=== PATIENT | female | born 1965 | race Caucasian/White ===

== ENCOUNTER 2024-10-24 14:08 | Outpatient (RCR) | payer MEDICAID, SELFPAY | END 2024-10-29 23:59 | disposition home or self-care (01) | LOC: SCTC 14:08 | PROVIDERS: PCP Physician Assistant; Referring Provider Physician Assistant; Visit Provider Nurse Practitioner Family | DX: Z09 Encounter for follow-up examination after completed treatment for conditions other than malignant neoplasm (principal); Z86.2 Personal history of diseases of the blood and blood-forming organs and certain disorders involving the immune mechanism; F17.210 Nicotine dependence, cigarettes, uncomplicated; E66.9 Obesity, unspecified; Z68.33 Body mass index [BMI] 33.0-33.9, adult | CPT/HCPCS: 99212; G0463 ==

== ENCOUNTER 2024-11-14 15:36 | Outpatient (RCR) | payer MEDICAID, SELFPAY | END 2024-11-29 23:59 | disposition home or self-care (01) | LOC: SCTC 15:36 | PROVIDERS: PCP Physician Assistant; Referring Provider Physician Assistant; Visit Provider Nurse Practitioner Family | DX: D72.829 Elevated white blood cell count, unspecified (principal); D75.1 Secondary polycythemia; D72.820 Lymphocytosis (symptomatic); D72.828 Other elevated white blood cell count; F17.210 Nicotine dependence, cigarettes, uncomplicated; E66.9 Obesity, unspecified; Z68.33 Body mass index [BMI] 33.0-33.9, adult; G62.9 Polyneuropathy, unspecified | CPT/HCPCS: 99212; G0463 ==

== ENCOUNTER 2024-12-14 08:19 | Outpatient (CLI) | payer MEDICAID, SELFPAY ==
[2024-12-13 15:37] LABS: Basophils % (Auto) 0 % (0-2.5); Eosinophils # (Auto) 0.4 Thou/mm3 (0.0-0.5); Eosinophils % (Auto) 3 % (0-10); Hematocrit 43.9 % (36.0-46.0); Hemoglobin 14.5 g/dL (12.0-16.0); Immature Granulocytes % (Auto) 1 % (0-0); Immature Granulocytes Auto 0.07 Thou/mm3 (0.00-0.00); Lymphocytes # (Auto) 2.8 Thou/mm3 (1.0-4.8); Lymphocytes % (Auto) 24 % (10-50); Mean Corpuscular Hemoglobin 29.9 pg (25.0-35.0); Mean Corpuscular Volume 91 fL (80-100); Monocytes % (Auto) 8 % (0-12); Neutrophils # (Auto) 7.4 Thou/mm3 (1.8-7.7); Neutrophils % (Auto) 64 % (37-80); Nucleated Red Blood Cell % 0 /100 WBC (0); Platelet Count 339 Thou/mm3 (140-440); RDW Standard Deviation 43.7 fL (36.4-46.3); Red Blood Count 4.85 Miln/mm3 (4.00-5.20); White Blood Count 11.6 Thou/mm3 (3.6-11.0)
[2024-12-13 15:46] LABS: Partial Thromboplastin Time 28.8 Seconds (22.0-36.0); Prothrombin Time 10.5 Seconds (9.0-12.2)
[2024-12-14] VITALS (12 sets, daily range): BP systolic 90–116; BP diastolic 54–79; PULSE 64–80; RESP 16–22; TEMP 36.4–37; O2SAT 93–100; BMI 31.6
--- NOTE | 2024-12-14 08:30 | XR_ITS ---
Examination: CT-guided percutaneous bone marrow aspiration right posterior superior iliac crest CT-guided percutaneous bone biopsy deep right posterior superior iliac crest INDICATIONS: Leukocytosis, unknown etiology Date and time of procedure: December 14, 2024 0851 hours Informed consent provided. A timeout was completed verifying correct patient, procedure, site and positioning. Technique: Axial 3 mm sections were obtained for localization of the right posterior superior iliac crest Appropriate area is marked. The patient's site was prepped and draped in sterile fashion Maximal sterile barrier technique utilized, including hand hygiene Local anesthesia was obtained with 1% lidocaine. Low dose protocols were performed. One or more of the following dose reduction techniques were used; automated exposure control, adjustment of the mA and/or KV according to patient size, use of iterative reconstruction technique. Utilizing CT fluoroscopic guidance 14-gauge bone biopsy needle placed in the right posterior superior iliac crest 5 cc marrow aspirate obtained, 5 cm bone core obtained, specimens appear adequate Patient appears in stable condition during this procedure. At completion of the procedure, the patient is in satisfactory condition. Estimated blood loss 2 cc Complete pathology report to follow. Impression: Successful CT-guided percutaneous bone marrow aspiration right posterior superior iliac crest Successful CT-guided percutaneous bone biopsy deep right posterior superior iliac crest
[2024-12-14] MEDS: SODIUM CHLORIDE 0.9% 500 ML 500 ML 250 ML IV (08:45)
[2024-12-14] MEDS: fentaNYL CIT INJ 50 mCg/ML AMP 2ML 75 MCG IVP (09:25)
[2024-12-14 09:51] LABS: Flow Cytometry* See Sep Rpt
== END 2024-12-14 10:50 | disposition home or self-care (01) ==
PROVIDERS: Radiology Diagnostic Radiology; PCP Physician Assistant; Referring Provider Nurse Practitioner Family; Visit Provider Nurse Practitioner Family
DX: D72.829 Elevated white blood cell count, unspecified (principal); Z01.812 Encounter for preprocedural laboratory examination
CPT/HCPCS: 38221; 36415; 77012; 85025; 85610; 85730; J3010; J7040

== ENCOUNTER → 2024-12-27 | Outpatient (CLI) | payer MEDICAID, SELFPAY ==
--- NOTE | 2024-12-27 10:30 | XR_ITS ---
Examination: CT chest with intravenous contrast CT abdomen with intravenous contrast CT pelvis with intravenous contrast 2-D coronal and sagittal reconstructions Time of exam: December 19, 2024 1152 hours Comparison June 11, 2023 INDICATIONS: Leukocytosis, 3 years CTDI: vol (mGy) : 22.4 DLP: (mGycm): 974 Technique: Multiple axial images of the chest, abdomen and pelvis with intravenous contrast, 3.0 mm slice thickness. Images obtained post intravenous injection Isovue 370 60 cc. 2-D sagittal and coronal reconstructions. Low dose protocols were performed. One or more of the following dose reduction techniques were used; automated exposure control, adjustment of the mA and/or KV according to patient size, use of iterative reconstruction technique. Findings: Thoracic aorta normal size and configuration Pulmonary artery segments are not enlarged No mediastinal lymphadenopathy No pneumonia, pulmonary edema, pleural disease or pulmonary mass lesions Benign hepatic cyst No solid liver or splenic lesions No gallstones No pancreatic or adrenal mass Moderate bilateral renal parenchymal scar formation No abdominal or pelvic lymphadenopathy Heavy abdominal aortic calcification Normal appendix No pelvic mass Intact urinary bladder Moderate osteopenia IMPRESSION: No mediastinal lymphadenopathy No pneumonia, pulmonary edema, pleural disease or pulmonary mass lesions No abdominal or pelvic interval lymphadenopathy Normal appendix
== END | disposition home or self-care (01) ==
LOC: CCTX 10:19
PROVIDERS: PCP Nurse Practitioner Family; Referring Provider Nurse Practitioner Family; Visit Provider Nurse Practitioner Family
DX: D72.829 Elevated white blood cell count, unspecified (principal)
CPT/HCPCS: 71260; 74177; A4649; Q9967

== ENCOUNTER 2024-12-28 13:05 | Outpatient (RCR) | payer MEDICAID, SELFPAY ==
[2024-12-06 15:00] LABS: Misc Send Out* See Sep Rpt
[2024-12-06 15:08] LABS: Basophils # (Auto) 0.1 Thou/mm3 (0.0-0.2); Basophils % (Auto) 1 % (0-2.5); Eosinophils # (Auto) 0.4 Thou/mm3 (0.0-0.5); Eosinophils % (Auto) 3 % (0-10); Hematocrit 49.1 % (36.0-46.0); Immature Granulocytes % (Auto) 1 % (0-0); Immature Granulocytes Auto 0.06 Thou/mm3 (0.00-0.00); Lymphocytes # (Auto) 2.5 Thou/mm3 (1.0-4.8); Lymphocytes % (Auto) 23 % (10-50); Mean Corpuscular HGB Conc 32.6 g/dl (31.0-37.0); Mean Corpuscular Hemoglobin 29.9 pg (25.0-35.0); Mean Corpuscular Volume 92 fL (80-100); Monocytes # (Auto) 0.8 Thou/mm3 (0.0-0.8); Monocytes % (Auto) 8 % (0-12); Neutrophils # (Auto) 7.1 Thou/mm3 (1.8-7.7); Neutrophils % (Auto) 65 % (37-80); Nucleated Red Blood Cell % 0 /100 WBC (0); Platelet Count 311 Thou/mm3 (140-440); RDW Standard Deviation 43.5 fL (36.4-46.3); Red Blood Count 5.36 Miln/mm3 (4.00-5.20); White Blood Count 10.9 Thou/mm3 (3.6-11.0)
[2024-12-06 15:25] LABS: Alanine Aminotransferase 21 U/L (10-49); Albumin/Globulin Ratio 2.2 (1.2-2.2); Alkaline Phosphatase 141 U/L (46-116); Anion Gap 7 (7-16); Aspartate Amino Transferase 13 U/L (0-34); BUN/Creatinine Ratio 18 Ratio (12-20); Bilirubin,Total 0.3 mg/dL (0.3-1.2); Blood Urea Nitrogen 24 mg/dL (9-23); Calcium 10.3 mg/dL (8.3-10.6); Calcium (Corrected) 10.3 mg/dL (8.5-10.1); Carbon Dioxide 32.3 mMol/L (20.0-31.0); Chloride 101 mMol/L (98-107); Creatinine (Component) 1.3 mg/dL (0.6-1.3); Globulin 2.3 gm/dL (2.3-3.5); Glucose 283 mg/dL (74-106); LDH (Lactate Dehydrogenase) 146 U/L (120-246); Osmolality,Calculated 293 (275-295); Potassium 4.5 mMol/L (3.4-5.1); Sodium 140 mMol/L (136-145); Total Protein 7.3 gm/dL (5.7-8.2); eGFR 48 See Note
[2024-12-08 14:19] LABS: Basophils # (Auto) 0.1 Thou/mm3 (0.0-0.2); Basophils % (Auto) 1 % (0-2.5); Eosinophils # (Auto) 0.3 Thou/mm3 (0.0-0.5); Eosinophils % (Auto) 3 % (0-10); Hematocrit 48.1 % (36.0-46.0); Hemoglobin 16.1 g/dL (12.0-16.0); Immature Granulocytes % (Auto) 0 % (0-0); Immature Granulocytes Auto 0.04 Thou/mm3 (0.00-0.00); Lymphocytes % (Auto) 24 % (10-50); Mean Corpuscular HGB Conc 33.5 g/dl (31.0-37.0); Mean Corpuscular Hemoglobin 30.2 pg (25.0-35.0); Mean Corpuscular Volume 90 fL (80-100); Monocytes # (Auto) 0.9 Thou/mm3 (0.0-0.8); Monocytes % (Auto) 7 % (0-12); Neutrophils # (Auto) 8.5 Thou/mm3 (1.8-7.7); Neutrophils % (Auto) 66 % (37-80); Nucleated Red Blood Cell % 0 /100 WBC (0); Platelet Count 252 Thou/mm3 (140-440); RDW Standard Deviation 43.5 fL (36.4-46.3); Red Blood Count 5.33 Miln/mm3 (4.00-5.20); White Blood Count 12.8 Thou/mm3 (3.6-11.0)
[2024-12-10 13:51] LABS: BCR-ABL1 Source whole blood
[2024-12-12 06:57] LABS: Erythropoietin (EPO)* 13.3 mIU/mL (2.6-18.5); P190 BCR-ABL1 NOT DETECTED; P210 BCR-ABL1 NOT DETECTED
[2024-12-12 10:24] LABS: Basophils # (Auto) 0.1 Thou/mm3 (0.0-0.2); Basophils % (Auto) 1 % (0-2.5); Eosinophils # (Auto) 0.4 Thou/mm3 (0.0-0.5); Eosinophils % (Auto) 3 % (0-10); Hemoglobin 14.7 g/dL (12.0-16.0); Immature Granulocytes % (Auto) 1 % (0-0); Immature Granulocytes Auto 0.08 Thou/mm3 (0.00-0.00); Lymphocytes # (Auto) 2.8 Thou/mm3 (1.0-4.8); Lymphocytes % (Auto) 22 % (10-50); Mean Corpuscular HGB Conc 32.7 g/dl (31.0-37.0); Mean Corpuscular Hemoglobin 30.1 pg (25.0-35.0); Mean Corpuscular Volume 92 fL (80-100); Monocytes # (Auto) 0.7 Thou/mm3 (0.0-0.8); Monocytes % (Auto) 6 % (0-12); Neutrophils # (Auto) 8.7 Thou/mm3 (1.8-7.7); Neutrophils % (Auto) 68 % (37-80); Nucleated Red Blood Cell % 0 /100 WBC (0); Platelet Count 216 Thou/mm3 (140-440); RDW Standard Deviation 44.1 fL (36.4-46.3); Red Blood Count 4.89 Miln/mm3 (4.00-5.20); White Blood Count 12.8 Thou/mm3 (3.6-11.0)
[2024-12-12 10:40] LABS: Alanine Aminotransferase 22 U/L (10-49); Albumin, Serum 4.9 gm/dL (3.5-5.0); Albumin/Globulin Ratio 1.9 (1.2-2.2); Alkaline Phosphatase 121 U/L (46-116); Anion Gap 8 (7-16); Aspartate Amino Transferase 23 U/L (0-34); BUN/Creatinine Ratio 12 Ratio (12-20); Bilirubin,Total 0.4 mg/dL (0.3-1.2); Blood Urea Nitrogen 14 mg/dL (9-23); Calcium 10.5 mg/dL (8.3-10.6); Calcium (Corrected) 10.5 mg/dL (8.5-10.1); Carbon Dioxide 26.8 mMol/L (20.0-31.0); Chloride 102 mMol/L (98-107); Creatinine (Component) 1.2 mg/dL (0.6-1.3); Globulin 2.6 gm/dL (2.3-3.5); Glucose 161 mg/dL (74-106); Osmolality,Calculated 277 (275-295); Potassium 4.9 mMol/L (3.4-5.1); Sodium 137 mMol/L (136-145); Total Protein 7.5 gm/dL (5.7-8.2); eGFR 52 See Note
[2024-12-15 14:28] LABS: Basophils # (Auto) 0.1 Thou/mm3 (0.0-0.2); Basophils % (Auto) 1 % (0-2.5); Eosinophils # (Auto) 0.3 Thou/mm3 (0.0-0.5); Eosinophils % (Auto) 3 % (0-10); Hematocrit 44.6 % (36.0-46.0); Hemoglobin 14.6 g/dL (12.0-16.0); Immature Granulocytes % (Auto) 1 % (0-0); Immature Granulocytes Auto 0.06 Thou/mm3 (0.00-0.00); Lymphocytes # (Auto) 2.8 Thou/mm3 (1.0-4.8); Lymphocytes % (Auto) 25 % (10-50); Mean Corpuscular HGB Conc 32.7 g/dl (31.0-37.0); Mean Corpuscular Volume 92 fL (80-100); Monocytes # (Auto) 0.8 Thou/mm3 (0.0-0.8); Monocytes % (Auto) 7 % (0-12); Neutrophils % (Auto) 64 % (37-80); Nucleated Red Blood Cell % 0 /100 WBC (0); Platelet Count 330 Thou/mm3 (140-440); RDW Standard Deviation 44.5 fL (36.4-46.3); Red Blood Count 4.86 Miln/mm3 (4.00-5.20)
[2024-12-19 11:19] LABS: Basophils # (Auto) 0.1 Thou/mm3 (0.0-0.2); Basophils % (Auto) 0 % (0-2.5); Eosinophils # (Auto) 0.3 Thou/mm3 (0.0-0.5); Eosinophils % (Auto) 3 % (0-10); Hematocrit 43.9 % (36.0-46.0); Hemoglobin 14.5 g/dL (12.0-16.0); Immature Granulocytes % (Auto) 0 % (0-0); Immature Granulocytes Auto 0.04 Thou/mm3 (0.00-0.00); Lymphocytes # (Auto) 3.2 Thou/mm3 (1.0-4.8); Lymphocytes % (Auto) 27 % (10-50); Mean Corpuscular Hemoglobin 30.4 pg (25.0-35.0); Mean Corpuscular Volume 92 fL (80-100); Monocytes # (Auto) 0.8 Thou/mm3 (0.0-0.8); Monocytes % (Auto) 7 % (0-12); Neutrophils # (Auto) 7.3 Thou/mm3 (1.8-7.7); Neutrophils % (Auto) 63 % (37-80); Nucleated Red Blood Cell % 0 /100 WBC (0); Platelet Count 319 Thou/mm3 (140-440); RDW Standard Deviation 45.1 fL (36.4-46.3); Red Blood Count 4.77 Miln/mm3 (4.00-5.20); White Blood Count 11.7 Thou/mm3 (3.6-11.0)
[2024-12-28 13:59] LABS: Basophils # (Auto) 0.1 Thou/mm3 (0.0-0.2); Basophils % (Auto) 1 % (0-2.5); Eosinophils # (Auto) 0.3 Thou/mm3 (0.0-0.5); Eosinophils % (Auto) 4 % (0-10); Hematocrit 46.2 % (36.0-46.0); Hemoglobin 15.1 g/dL (12.0-16.0); Immature Granulocytes % (Auto) 0 % (0-0); Immature Granulocytes Auto 0.04 Thou/mm3 (0.00-0.00); Lymphocytes # (Auto) 2.3 Thou/mm3 (1.0-4.8); Lymphocytes % (Auto) 24 % (10-50); Mean Corpuscular HGB Conc 32.7 g/dl (31.0-37.0); Mean Corpuscular Hemoglobin 30.6 pg (25.0-35.0); Mean Corpuscular Volume 94 fL (80-100); Monocytes # (Auto) 0.8 Thou/mm3 (0.0-0.8); Monocytes % (Auto) 8 % (0-12); Neutrophils # (Auto) 5.9 Thou/mm3 (1.8-7.7); Neutrophils % (Auto) 63 % (37-80); Nucleated Red Blood Cell % 0 /100 WBC (0); Platelet Count 314 Thou/mm3 (140-440); RDW Standard Deviation 45.8 fL (36.4-46.3); Red Blood Count 4.94 Miln/mm3 (4.00-5.20); White Blood Count 9.4 Thou/mm3 (3.6-11.0)
== END 2024-12-30 23:59 | disposition home or self-care (01) ==
LOC: SCTC 13:05
PROVIDERS: Internal Medicine Hematology & Oncology; PCP Physician Assistant; Referring Provider Physician Assistant; Visit Provider Nurse Practitioner Family
DX: D72.829 Elevated white blood cell count, unspecified (principal); D75.1 Secondary polycythemia; E66.9 Obesity, unspecified; Z68.33 Body mass index [BMI] 33.0-33.9, adult; D72.820 Lymphocytosis (symptomatic); Z79.82 Long term (current) use of aspirin; M54.9 Dorsalgia, unspecified; G89.29 Other chronic pain
CPT/HCPCS: 36415; 80053; 81206; 81207; 81219; 81270; 81279; 81339; 82668; 83615; 85025; 99195; 99212; G0463

== ENCOUNTER 2025-01-26 13:28 | Outpatient (RCR) | payer MEDICAID, SELFPAY ==
--- NOTE | 2025-01-02 22:37 | CTCFLWUP_ITS ---
Patient: LEANNE PÉREZ : 1965 Page 3 of 4 FOLLOW UP NOTE DATE OF SERVICE: 01/02/2025 NAME: LEANNE PÉREZ ACCOUNT: [id number] : 1965 AGE: 59 INTERVAL HISTORY: Patient is here to follow-up on the results of bone marrow biopsy as well as CT scan. Patient still smoking about 1 and half pack of cigarettes. She denies diagnosis of COPD. Uses albuterol inhaler as needed. Patient do not have any symptoms of CHARLEY or wheezing or breathing issues. She says she sleeps well do not feel tired in the daytime. HISTORY: Leanne Pérez is a 59-year-old ENG speaking female referred to hematology clinic for leukocytosis. Ms. Pérez has been smoking cigarettes since age 16. She used to smoke 1 pack/day which she has cut down to 10 to 15 cigarettes few months ago. At present she continues to smoke cigarettes. 03/06/2023: CBC 12.0, ANC 7.3, hemoglobin 16.3, MCV 95, platelets 265,000 06/11/2023: CT scan of the chest without IV contrast 08/31/2023: WBC 10.4, ANC 6.9, hemoglobin 16.5, MCV 92, platelets 257,000. 04/01/2024: WBC 10.4, ANC 6.1, hemoglobin 15.7, MCV 94, platelets 282,000 10/18/2024: WBC 12.6, ANC 8.2, hemoglobin 17.7, MCV 92, platelets 309,000 11/09/2024: WBC 12.9, ANC 8.2, hemoglobin 17.2, hematocrit 51.0, MCV 91, platelets 289,000 DIAGNOSIS: Mild asymptomatic leukocytosis and neutrophilia most likely secondary to cigarette smoking. Cigarette smoking for more than 40 years. Obesity with a BMI of 33.3 and a weight of 176 pounds. 12/27/2024 CT scan chest abdomen pelvis shows no mediastinal lymphadenopathy no pneumonia pulmonary edema pleural disease pulmonary mass disease no abdominal or pelvic lymphadenopathy Patient noted to have heavy abdominal aortic calcifications and moderate osteopenia: OTHER MEDICAL HISTORY/CONDITIONS: DIABETES SESONAL ALLERGIES HIGH BLOOD PRESSUE SEIZURES HX C SECTION/ 3 RIGHT KNEE MINUSI REPAIR CLAVICAL DISECTION CARPAL TUNNEL. BILAT TUBAL CHRONIC BACK PAIN DVT 2001 AFTER KNEE SURGERY COPD FAMILY HISTORY: Patient?denies?family?cancer?history. 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 Adult Low Dose Aspirin - 81 mg 1 tab one tab po q daily 2. atorvastatin - 40 mg 1 tab Daily 3. BuSpar - 15 mg Twice a Day 4. gabapentin - 600 mg 1 tab Twice a Day 5. Jardiance - 10 mg 1 tab Daily 6. lisinopril-hydrochlorothiazide - 10-12.5 mg 1 tab Daily 7. metFORMIN - 1,000 mg 1 tab Twice a Day 8. methocarbamol - 750 mg 1 tab Twice a Day?Palabra Meds? Medications Last Reconciled by Mena Mott RN on 01/02/2025 ALLERGIES: CODEINE PHOSPHATE; nicotine REVIEW OF SYSTEMS: A complete 14-point review of systems was performed and is negative except as noted in interval history. PHYSICAL EXAMINATION:?CloneBlock PE? VITAL SIGNS: Temperature?99.4, B/P?98/66, Oxygen?Saturation?95% Weight?179?lbs (Change?since?12/28/24:?0.8?lbs) PAIN: 8 - Very severe pain ECOG Performance Status: 0 - Asymptomatic and fully active GENERAL APPEARANCE: Appears well, in no apparent distress, appropriately interactive. HEENT: Normocephalic, no temporal wasting, normal conjunctiva, normal hearing, lips without lesions, neck normal range of motion. CARDIOVASCULAR: Normal heart sounds PULMONARY: Coarse lung sounds, no respiratory distress or use of accessory muscles, speaking in full sentences, no tachypnea. EXTREMITIES: No pedal edema or cyanosis. Using walker for ambulation SKIN: Normal skin appearance. NEUROLOGIC: Alert and ORIENTED x4. PSHYCHIATRIC: Appropriate affect, mood normal, behavior normal, intact thought and speech. LABORATORY DATA: I have personally reviewed and interpreted each of the patient?s relevant lab tests, abnormal findings are below: Date 12/19/24 ??WHITE?BLOOD?COUNT?(Thou/mm3) 11.7?H ??RED?BLOOD?COUNT?(Miln/mm3) 4.77 ??HEMOGLOBIN?(gm/dl) 14.5 ??HEMATOCRIT?(%) 43.9 ??PLATELET?COUNT?(Thou/mm3) 319 ??NEUTROPHILS?%,?AUTO?(%) 63 ??LYMPH?%,?AUTO?(%) 27 ??NEUTROPHILS,?AUTO?(Thou/mm3) 7.3 ASSESSMENT/PLAN:?Demond Singh Assessment/Plan? 1. History of leukocytosis and neutrophilia most likely secondary to cigarette smoking. Ms. Pérez is a chronic cigarette smoker. She continues to smoke half a pack a day at this time. Extensively counseled to quit smoking Patient is not ready Continue to monitor #2 erythrocytosis likely from chronic hypoxia secondary to underlying smoking Patient need PFTs to evaluate for COPD Needs sleep studies to evaluate for CHARLEY and nocturnal hypoxia Will continue phlebotomy to keep hematocrit below 45 Bone marrow negative for any MDS MPN JAK2 negative MPL mutation negative NATO mutation negative Patient's erythrocytosis is likely from secondary causes Will also check EPO CT scan chest abdomen pelvis negative for any malignancy Obesity with a BMI 33.3, 176 L8. May also be contributing to hypoxia #3 osteopenia Advised to take calcium and vitamin D3 daily If patient's PFT shows that she has restrictive or obstructive disease will refer to pulmonary If patient have CPAP requirement will need follow-up with the pulmonary Will continue phlebotomy and follow her every 6 months ORDERS: Follow-up on the sleep study, erythropoietin l, CBC, phlebotomy if hematocrit is above 45 RETURN TO CLINIC: I will see her back in the clinic in [address] scan chest low-dose local no contrast every year BILLING AND COMPLIANCE: I reviewed external records from providers outside my specialty as summarized above. I spent a total of 50 minutes on this patient?s care on the day of their visit excluding time spent related to any billed procedures. This time includes time spent with the patient as well as time spent documenting in the medical record, reviewing patients records and tests, obtaining history, placing orders, communicating with other healthcare professionals, counseling the patient, family or caregiver, and/or care coordination for the diagnoses above. Electronically Signed by: Gregor Singh MD T: 10:34 PM CC: PCP: Zuleima Peters Referring: Zuleima Peters This document was completed utilizing speech recognition software. Grammatical errors, random word insertions, pronoun errors, and incomplete sentences are an occasional consequence of this system due to software limitations, ambient noise, and hardware issues. Any formal questions or concerns about the content, text or information contained within the body of this dictation should be directly addressed to the provider for clarification.
[2025-01-05 14:28] LABS: Basophils % (Auto) 0 % (0-2.5); Eosinophils # (Auto) 0.3 Thou/mm3 (0.0-0.5); Eosinophils % (Auto) 3 % (0-10); Hematocrit 50.9 % (36.0-46.0); Hemoglobin 16.6 g/dL (12.0-16.0); Immature Granulocytes % (Auto) 0 % (0-0); Immature Granulocytes Auto 0.04 Thou/mm3 (0.00-0.00); Lymphocytes # (Auto) 2.4 Thou/mm3 (1.0-4.8); Lymphocytes % (Auto) 23 % (10-50); Mean Corpuscular HGB Conc 32.6 g/dl (31.0-37.0); Mean Corpuscular Volume 92 fL (80-100); Monocytes # (Auto) 0.7 Thou/mm3 (0.0-0.8); Monocytes % (Auto) 7 % (0-12); Neutrophils # (Auto) 7.1 Thou/mm3 (1.8-7.7); Neutrophils % (Auto) 67 % (37-80); Nucleated Red Blood Cell % 0 /100 WBC (0); Platelet Count 290 Thou/mm3 (140-440); Red Blood Count 5.54 Miln/mm3 (4.00-5.20); White Blood Count 10.5 Thou/mm3 (3.6-11.0)
[2025-01-12 14:17] LABS: Basophils # (Auto) 0.1 Thou/mm3 (0.0-0.2); Basophils % (Auto) 0 % (0-2.5); Eosinophils # (Auto) 0.4 Thou/mm3 (0.0-0.5); Eosinophils % (Auto) 3 % (0-10); Hematocrit 42.8 % (36.0-46.0); Immature Granulocytes % (Auto) 0 % (0-0); Immature Granulocytes Auto 0.05 Thou/mm3 (0.00-0.00); Lymphocytes # (Auto) 2.6 Thou/mm3 (1.0-4.8); Lymphocytes % (Auto) 21 % (10-50); Mean Corpuscular HGB Conc 32.7 g/dl (31.0-37.0); Mean Corpuscular Volume 92 fL (80-100); Monocytes # (Auto) 0.8 Thou/mm3 (0.0-0.8); Monocytes % (Auto) 7 % (0-12); Neutrophils # (Auto) 8.4 Thou/mm3 (1.8-7.7); Neutrophils % (Auto) 68 % (37-80); Nucleated Red Blood Cell % 0 /100 WBC (0); Platelet Count 342 Thou/mm3 (140-440); RDW Standard Deviation 46.2 fL (36.4-46.3); Red Blood Count 4.66 Miln/mm3 (4.00-5.20); White Blood Count 12.3 Thou/mm3 (3.6-11.0)
[2025-01-19 13:45] LABS: Basophils # (Auto) 0.1 Thou/mm3 (0.0-0.2); Basophils % (Auto) 1 % (0-2.5); Eosinophils # (Auto) 0.3 Thou/mm3 (0.0-0.5); Eosinophils % (Auto) 3 % (0-10); Hematocrit 45.9 % (36.0-46.0); Immature Granulocytes % (Auto) 0 % (0-0); Immature Granulocytes Auto 0.03 Thou/mm3 (0.00-0.00); Lymphocytes # (Auto) 2.4 Thou/mm3 (1.0-4.8); Lymphocytes % (Auto) 23 % (10-50); Mean Corpuscular HGB Conc 32.7 g/dl (31.0-37.0); Mean Corpuscular Hemoglobin 29.9 pg (25.0-35.0); Mean Corpuscular Volume 92 fL (80-100); Monocytes % (Auto) 9 % (0-12); Neutrophils % (Auto) 65 % (37-80); Nucleated Red Blood Cell % 0 /100 WBC (0); Platelet Count 336 Thou/mm3 (140-440); RDW Standard Deviation 45.8 fL (36.4-46.3); Red Blood Count 5.01 Miln/mm3 (4.00-5.20); White Blood Count 10.8 Thou/mm3 (3.6-11.0)
[2025-01-26 14:18] LABS: Basophils # (Auto) 0.1 Thou/mm3 (0.0-0.2); Basophils % (Auto) 1 % (0-2.5); Eosinophils # (Auto) 0.3 Thou/mm3 (0.0-0.5); Eosinophils % (Auto) 3 % (0-10); Hematocrit 46.6 % (36.0-46.0); Hemoglobin 15.2 g/dL (12.0-16.0); Immature Granulocytes % (Auto) 0 % (0-0); Immature Granulocytes Auto 0.02 Thou/mm3 (0.00-0.00); Lymphocytes # (Auto) 2.3 Thou/mm3 (1.0-4.8); Lymphocytes % (Auto) 24 % (10-50); Mean Corpuscular HGB Conc 32.6 g/dl (31.0-37.0); Mean Corpuscular Hemoglobin 29.7 pg (25.0-35.0); Mean Corpuscular Volume 91 fL (80-100); Monocytes # (Auto) 0.8 Thou/mm3 (0.0-0.8); Monocytes % (Auto) 8 % (0-12); Neutrophils # (Auto) 6.3 Thou/mm3 (1.8-7.7); Neutrophils % (Auto) 65 % (37-80); Nucleated Red Blood Cell % 0 /100 WBC (0); Platelet Count 311 Thou/mm3 (140-440); RDW Standard Deviation 43.8 fL (36.4-46.3); Red Blood Count 5.11 Miln/mm3 (4.00-5.20); White Blood Count 9.7 Thou/mm3 (3.6-11.0)
== END 2025-01-27 23:59 | disposition home or self-care (01) ==
LOC: SCTC 13:28
PROVIDERS: Internal Medicine Hematology & Oncology; PCP Physician Assistant; Referring Provider Physician Assistant; Visit Provider Nurse Practitioner Family
DX: D75.1 Secondary polycythemia (principal); F17.210 Nicotine dependence, cigarettes, uncomplicated; Z71.6 Tobacco abuse counseling; M85.80 Other specified disorders of bone density and structure, unspecified site; Z86.2 Personal history of diseases of the blood and blood-forming organs and certain disorders involving the immune mechanism; Z71.2 Person consulting for explanation of examination or test findings
CPT/HCPCS: 36415; 36591; 85025; 99195; 99213; G0463

== ENCOUNTER → 2025-02-10 | Outpatient (CLI) | payer MEDICAID, SELFPAY ==
--- NOTE | 2025-02-10 16:41 | XR_ITS ---
Examination: MRI brain without intravenous contrast. Date and time of exam: February 10, 2025, 1655 hrs. Indications: Dizziness and paresthesias in the extremities 10 years 6 Technique: Multiple axial and sagittal images of the brain obtained. Siemens high-resolution 1.5 Yudith short bore scanners utilized. Sagittal sections, T1-weighted, TR 500, TE 14, are performed. Axial sections proton-density and T2-weighted have been obtained. Inversion recovery axial images, TR 9, 260, TE 111, TI 2500. Diffusion weighted images, axial sections, TR 4800, TE 128, B value 1000 Axial sections, ADC map, TR 4800, TE 128 Findings: Enlargement of the sella turcica is not present. The optic chiasm and infundibular are not remarkable. Prepontine and interpeduncular cisterns are not enlarged. There is no localized enlargement of the medulla or grace. Fourth ventricle and cerebellar tonsils appear normal in position. No subacute area of hemorrhage density is seen. Mass in the cerebellopontine angle region is not evident. Globes symmetrical. Orbital musculature including medial lateral rectus muscles do not exhibit abnormality. Diffusion-weighted images demonstrate no focus of restricted diffusion. Cystic mass in the posterior right parietal lobe, 30 x 31 mm Mass effect upon the ventricular system is not identified. 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
== END | disposition home or self-care (01) ==
LOC: SMRI 16:23
PROVIDERS: PCP Physician Assistant; Referring Provider Physician Assistant; Visit Provider Physician Assistant
DX: G93.9 Disorder of brain, unspecified (principal); Z86.39 Personal history of other endocrine, nutritional and metabolic disease
CPT/HCPCS: 70551

== ENCOUNTER 2025-02-23 14:12 | Outpatient (RCR) | payer MEDICAID, SELFPAY ==
[2025-02-02 15:28] LABS: Basophils # (Auto) 0.1 Thou/mm3 (0.0-0.2); Basophils % (Auto) 1 % (0-2.5); Eosinophils # (Auto) 0.3 Thou/mm3 (0.0-0.5); Eosinophils % (Auto) 3 % (0-10); Hematocrit 47.5 % (36.0-46.0); Hemoglobin 15.5 g/dL (12.0-16.0); Immature Granulocytes % (Auto) 0 % (0-0); Immature Granulocytes Auto 0.04 Thou/mm3 (0.00-0.00); Lymphocytes # (Auto) 2.4 Thou/mm3 (1.0-4.8); Lymphocytes % (Auto) 24 % (10-50); Mean Corpuscular HGB Conc 32.6 g/dl (31.0-37.0); Mean Corpuscular Hemoglobin 29.6 pg (25.0-35.0); Mean Corpuscular Volume 91 fL (80-100); Monocytes # (Auto) 0.9 Thou/mm3 (0.0-0.8); Monocytes % (Auto) 9 % (0-12); Neutrophils # (Auto) 6.5 Thou/mm3 (1.8-7.7); Neutrophils % (Auto) 64 % (37-80); Nucleated Red Blood Cell % 0 /100 WBC (0); Platelet Count 344 Thou/mm3 (140-440); RDW Standard Deviation 44.5 fL (36.4-46.3); Red Blood Count 5.24 Miln/mm3 (4.00-5.20); White Blood Count 10.2 Thou/mm3 (3.6-11.0)
[2025-02-09 15:14] LABS: Basophils # (Auto) 0.1 Thou/mm3 (0.0-0.2); Basophils % (Auto) 1 % (0-2.5); Eosinophils # (Auto) 0.3 Thou/mm3 (0.0-0.5); Eosinophils % (Auto) 3 % (0-10); Hematocrit 43.3 % (36.0-46.0); Immature Granulocytes % (Auto) 1 % (0-0); Immature Granulocytes Auto 0.05 Thou/mm3 (0.00-0.00); Lymphocytes # (Auto) 2.6 Thou/mm3 (1.0-4.8); Lymphocytes % (Auto) 24 % (10-50); Mean Corpuscular HGB Conc 32.3 g/dl (31.0-37.0); Mean Corpuscular Hemoglobin 29.6 pg (25.0-35.0); Mean Corpuscular Volume 92 fL (80-100); Monocytes # (Auto) 0.9 Thou/mm3 (0.0-0.8); Monocytes % (Auto) 8 % (0-12); Neutrophils % (Auto) 64 % (37-80); Nucleated Red Blood Cell % 0 /100 WBC (0); Platelet Count 408 Thou/mm3 (140-440); RDW Standard Deviation 44.7 fL (36.4-46.3); Red Blood Count 4.73 Miln/mm3 (4.00-5.20)
[2025-02-16 14:59] LABS: Basophils % (Auto) 0 % (0-2.5); Eosinophils # (Auto) 0.3 Thou/mm3 (0.0-0.5); Eosinophils % (Auto) 3 % (0-10); Hematocrit 44.9 % (36.0-46.0); Hemoglobin 14.3 g/dL (12.0-16.0); Immature Granulocytes % (Auto) 0 % (0-0); Immature Granulocytes Auto 0.04 Thou/mm3 (0.00-0.00); Lymphocytes # (Auto) 2.6 Thou/mm3 (1.0-4.8); Lymphocytes % (Auto) 23 % (10-50); Mean Corpuscular HGB Conc 31.8 g/dl (31.0-37.0); Mean Corpuscular Hemoglobin 29.2 pg (25.0-35.0); Mean Corpuscular Volume 92 fL (80-100); Monocytes # (Auto) 0.9 Thou/mm3 (0.0-0.8); Monocytes % (Auto) 9 % (0-12); Neutrophils # (Auto) 7.1 Thou/mm3 (1.8-7.7); Neutrophils % (Auto) 65 % (37-80); Nucleated Red Blood Cell % 0 /100 WBC (0); Platelet Count 388 Thou/mm3 (140-440); RDW Standard Deviation 45.1 fL (36.4-46.3)
[2025-02-23 14:55] LABS: Basophils # (Auto) 0.1 Thou/mm3 (0.0-0.2); Basophils % (Auto) 1 % (0-2.5); Eosinophils # (Auto) 0.4 Thou/mm3 (0.0-0.5); Eosinophils % (Auto) 4 % (0-10); Hematocrit 44.7 % (36.0-46.0); Hemoglobin 14.5 g/dL (12.0-16.0); Immature Granulocytes % (Auto) 0 % (0-0); Immature Granulocytes Auto 0.03 Thou/mm3 (0.00-0.00); Lymphocytes # (Auto) 2.7 Thou/mm3 (1.0-4.8); Lymphocytes % (Auto) 23 % (10-50); Mean Corpuscular HGB Conc 32.4 g/dl (31.0-37.0); Mean Corpuscular Hemoglobin 29.2 pg (25.0-35.0); Mean Corpuscular Volume 90 fL (80-100); Monocytes # (Auto) 0.9 Thou/mm3 (0.0-0.8); Monocytes % (Auto) 8 % (0-12); Neutrophils # (Auto) 7.5 Thou/mm3 (1.8-7.7); Neutrophils % (Auto) 65 % (37-80); Nucleated Red Blood Cell % 0 /100 WBC (0); Platelet Count 348 Thou/mm3 (140-440); RDW Standard Deviation 43.7 fL (36.4-46.3); Red Blood Count 4.97 Miln/mm3 (4.00-5.20); White Blood Count 11.6 Thou/mm3 (3.6-11.0)
== END 2025-02-27 23:59 | disposition home or self-care (01) ==
LOC: SCTC 14:12
PROVIDERS: Internal Medicine Hematology & Oncology; PCP Physician Assistant; Referring Provider Physician Assistant; Visit Provider Nurse Practitioner Family
DX: D72.829 Elevated white blood cell count, unspecified (principal); D72.828 Other elevated white blood cell count; F17.210 Nicotine dependence, cigarettes, uncomplicated; D75.1 Secondary polycythemia; M85.80 Other specified disorders of bone density and structure, unspecified site; E66.9 Obesity, unspecified; Z68.33 Body mass index [BMI] 33.0-33.9, adult
CPT/HCPCS: 36415; 36430; 85025; 96375; 99195

== ENCOUNTER 2025-03-27 14:09 | Outpatient (RCR) | payer MEDICAID, SELFPAY ==
[2025-03-02 14:56] LABS: Basophils # (Auto) 0.1 Thou/mm3 (0.0-0.2); Basophils % (Auto) 1 % (0-2.5); Eosinophils # (Auto) 0.4 Thou/mm3 (0.0-0.5); Eosinophils % (Auto) 4 % (0-10); Hematocrit 46.9 % (36.0-46.0); Immature Granulocytes % (Auto) 0 % (0-0); Immature Granulocytes Auto 0.04 Thou/mm3 (0.00-0.00); Lymphocytes # (Auto) 2.8 Thou/mm3 (1.0-4.8); Lymphocytes % (Auto) 26 % (10-50); Mean Corpuscular Hemoglobin 28.8 pg (25.0-35.0); Mean Corpuscular Volume 90 fL (80-100); Monocytes # (Auto) 0.9 Thou/mm3 (0.0-0.8); Monocytes % (Auto) 9 % (0-12); Neutrophils # (Auto) 6.3 Thou/mm3 (1.8-7.7); Neutrophils % (Auto) 60 % (37-80); Nucleated Red Blood Cell % 0 /100 WBC (0); Platelet Count 354 Thou/mm3 (140-440); RDW Standard Deviation 43.8 fL (36.4-46.3); Red Blood Count 5.21 Miln/mm3 (4.00-5.20); White Blood Count 10.4 Thou/mm3 (3.6-11.0)
[2025-03-09 14:42] LABS: Basophils # (Auto) 0.1 Thou/mm3 (0.0-0.2); Basophils % (Auto) 1 % (0-2.5); Eosinophils # (Auto) 0.4 Thou/mm3 (0.0-0.5); Eosinophils % (Auto) 4 % (0-10); Hematocrit 44.5 % (36.0-46.0); Hemoglobin 14.6 g/dL (12.0-16.0); Immature Granulocytes % (Auto) 0 % (0-0); Immature Granulocytes Auto 0.03 Thou/mm3 (0.00-0.00); Lymphocytes # (Auto) 2.4 Thou/mm3 (1.0-4.8); Lymphocytes % (Auto) 22 % (10-50); Mean Corpuscular HGB Conc 32.8 g/dl (31.0-37.0); Mean Corpuscular Hemoglobin 29.1 pg (25.0-35.0); Mean Corpuscular Volume 89 fL (80-100); Monocytes # (Auto) 0.9 Thou/mm3 (0.0-0.8); Monocytes % (Auto) 8 % (0-12); Neutrophils # (Auto) 7.3 Thou/mm3 (1.8-7.7); Neutrophils % (Auto) 66 % (37-80); Nucleated Red Blood Cell % 0 /100 WBC (0); Platelet Count 343 Thou/mm3 (140-440); RDW Standard Deviation 43.3 fL (36.4-46.3); Red Blood Count 5.02 Miln/mm3 (4.00-5.20)
[2025-03-23 14:39] LABS: Alanine Aminotransferase 17 U/L (10-49); Albumin, Serum 4.9 gm/dL (3.5-5.0); Albumin/Globulin Ratio 2.2 (1.2-2.2); Alkaline Phosphatase 119 U/L (46-116); Anion Gap 9 (7-16); Aspartate Amino Transferase 24 U/L (0-34); BUN/Creatinine Ratio 19 Ratio (12-20); Bilirubin,Total 0.4 mg/dL (0.3-1.2); Blood Urea Nitrogen 27 mg/dL (9-23); Calcium 10.3 mg/dL (8.3-10.6); Calcium (Corrected) 10.3 mg/dL (8.5-10.1); Carbon Dioxide 32.7 mMol/L (20.0-31.0); Chloride 98 mMol/L (98-107); Creatinine (Component) 1.4 mg/dL (0.6-1.3); Globulin 2.2 gm/dL (2.3-3.5); Glucose 144 mg/dL (74-106); Osmolality,Calculated 287 (275-295); Potassium 4.2 mMol/L (3.4-5.1); Sodium 140 mMol/L (136-145); Total Protein 7.1 gm/dL (5.7-8.2); eGFR 44 See Note
[2025-03-23 15:14] LABS: Basophils # (Auto) 0.1 Thou/mm3 (0.0-0.2); Basophils % (Auto) 0 % (0-2.5); Eosinophils # (Auto) 0.4 Thou/mm3 (0.0-0.5); Eosinophils % (Auto) 4 % (0-10); Hematocrit 42.7 % (36.0-46.0); Hemoglobin 13.8 g/dL (12.0-16.0); Immature Granulocytes % (Auto) 0 % (0-0); Immature Granulocytes Auto 0.02 Thou/mm3 (0.00-0.00); Lymphocytes # (Auto) 2.5 Thou/mm3 (1.0-4.8); Lymphocytes % (Auto) 22 % (10-50); Mean Corpuscular HGB Conc 32.3 g/dl (31.0-37.0); Mean Corpuscular Hemoglobin 28.6 pg (25.0-35.0); Mean Corpuscular Volume 89 fL (80-100); Monocytes # (Auto) 0.9 Thou/mm3 (0.0-0.8); Monocytes % (Auto) 8 % (0-12); Neutrophils # (Auto) 7.6 Thou/mm3 (1.8-7.7); Neutrophils % (Auto) 66 % (37-80); Nucleated Red Blood Cell % 0 /100 WBC (0); Platelet Count 400 Thou/mm3 (140-440); RDW Standard Deviation 43.9 fL (36.4-46.3); Red Blood Count 4.82 Miln/mm3 (4.00-5.20); White Blood Count 11.5 Thou/mm3 (3.6-11.0)
--- NOTE | 2025-03-28 01:24 | CTCFLWUP_ITS ---
Patient: ORLANDO PÉREZ : 1965 Page 3 of 6 FOLLOW UP NOTE DATE OF SERVICE: 03/27/2025 NAME: ORLANDO PÉREZ ACCOUNT: [id number] : 1965 AGE: 59 INTERVAL HISTORY: Levi Perdomo, a 59-year-old woman with a history of extensive smoking, COPD, hypertension, diabetes, and chronic kidney disease, presented for follow-up of recent bone marrow biopsy and CT scan results. She reports wheezing and frequent urination, with her blood pressure running around 100/70 mmHg. Recent tests showed a negative bone marrow biopsy and CT scan, elevated hemoglobin, slightly elevated WBC, and decreased kidney function. Plans include discontinuing hydrochlorothiazide, monitoring kidney function and blood pressure, considering oxygen therapy, and encouraging smoking cessation. Chief Complaint History of Present Illness Levi Freeman, a 59-year-old woman with a history of extensive smoking HISTORY: Ms. Pérez has been smoking cigarettes since age 16. She used to smoke 1 pack/day which she has cut down to 10 to 15 cigarettes few months ago. At present she continues to smoke cigarettes. The patient continues to smoke half a pack of cigarettes per day. She reports currently experiencing an allergy attack, which is contributing to her respiratory symptoms along with her COPD. The patient mentions frequent urination, though she notes the urine is not dark in color. Her blood pressure has been running around 100/70, and she is currently taking hydrochlorothiazide and lisinopril for hypertension. She also confirms a history of diabetes. Regarding her recent sleep study, the patient admits she likely did not wear the monitoring device for the entire night, possibly removing it in the middle of the night. The sleep center has requested she come to their facility for a more controlled study. The patient previously saw a nitric acid plant operator, Dr. Gen Kaufman, who had her use oxygen in a chamber for an hour. She reports feeling satisfied with this experience. Medical History - Chronic obstructive pulmonary disease (COPD) - Hypertension, controlled with medication - Diabetes mellitus - Chronic kidney disease, with recent decline in function Medications and Supplements - Hydrochlorothiazide - Being discontinued due to potential kidney function impact - Lisinopril - Taken in combination with hydrochlorothiazide - Lisinopril 10 mg tablet by mouth once daily - New regimen replacing the combination of lisinopril and hydrochlorothiazide Allergies - Patient reports having an allergy attack at the time of the visit Social History - Substance Use: Current smoker (half a pack per day) Review of Systems General: Positive for frequent urination. Respiratory: Positive for wheezing. Cardiovascular: Negative for high blood pressure. Genitourinary: Negative for dark-colored urine.06/11/2023: CT scan of the chest without IV contrast 08/31/2023: WBC 10.4, ANC 6.9, hemoglobin 16.5, MCV 92, platelets 257,000. 04/01/2024: WBC 10.4, ANC 6.1, hemoglobin 15.7, MCV 94, platelets 282,000 10/18/2024: WBC 12.6, ANC 8.2, hemoglobin 17.7, MCV 92, platelets 309,000 11/09/2024: WBC 12.9, ANC 8.2, hemoglobin 17.2, hematocrit 51.0, MCV 91, platelets 289,000 ONCOLOGY HISTORY: DIAGNOSIS: Mild asymptomatic leukocytosis and neutrophilia most likely secondary to cigarette smoking. Cigarette smoking for more than 40 years. Obesity with a BMI of 33.3 and a weight of 176 pounds. 12/27/2024 CT scan chest abdomen pelvis shows no mediastinal lymphadenopathy no pneumonia pulmonary edema pleural disease pulmonary mass disease no abdominal or pelvic lymphadenopathy Patient noted to have heavy abdominal aortic calcifications and moderate osteopenia: Care?Plan Start?Date Cycle Day Intent OTHER MEDICAL HISTORY/CONDITIONS: DIABETES SESONAL ALLERGIES HIGH BLOOD PRESSUE SEIZURES HX C SECTION/ 3 RIGHT KNEE MINUSI REPAIR CLAVICAL DISECTION CARPAL TUNNEL. BILAT TUBAL CHRONIC BACK PAIN DVT 2001 AFTER KNEE SURGERY COPD FAMILY HISTORY: Patient?denies?family?cancer?history. 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 Adult Low Dose Aspirin - 81 mg 1 tab one tab po q daily 2. atorvastatin - 40 mg 1 tab Daily 3. BuSpar - 15 mg Twice a Day 4. gabapentin - 600 mg 1 tab Twice a Day 5. Jardiance - 10 mg 1 tab Daily 6. lisinopril - 10 mg 1 tab Daily 7. metFORMIN - 1,000 mg 1 tab Twice a Day 8. methocarbamol - 750 mg 1 tab Twice a Day?Palabra Meds? Medications Last Reconciled by Tyra Choudhury MA on 03/27/2025 ALLERGIES: CODEINE PHOSPHATE; nicotine REVIEW OF SYSTEMS: A complete 14-point review of systems was performed and is negative except as noted in interval history. PHYSICAL EXAMINATION:?CloneBlock PE? VITAL SIGNS: Temperature?99.2, B/P?110/75, Oxygen?Saturation?95% Weight?182?lbs (Change?since?03/23/25:?-0.2?lbs) PAIN: 0 - No pain ECOG Performance Status: 0 - Asymptomatic and fully active GENERAL APPEARANCE: Appears well, in no apparent distress, appropriately interactive. HEENT: Normocephalic, no temporal wasting, normal conjunctiva, normal hearing, lips without lesions, neck normal range of motion. CARDIOVASCULAR: Normal heart sounds PULMONARY: Coarse lung sounds, no respiratory distress or use of accessory muscles, speaking in full sentences, no tachypnea. EXTREMITIES: No pedal edema or cyanosis. Using walker for ambulation SKIN: Normal skin appearance. NEUROLOGIC: Alert and ORIENTED x4. PSHYCHIATRIC: Appropriate affect, mood normal, behavior normal, intact thought and speech. LABORATORY DATA: I have personally reviewed and interpreted each of the patient?s relevant lab tests, abnormal findings are below: Date 03/02/25 03/09/25 03/23/25 ??WHITE?BLOOD?COUNT?(Thou/mm3) 10.4 11.0 ? 11.5?H ??RED?BLOOD?COUNT?(Miln/mm3) 5.21?H 5.02 ? 4.82 ??HEMOGLOBIN?(gm/dl) 15.0 14.6 ? 13.8 ??HEMATOCRIT?(%) 46.9?H 44.5 ? 42.7 ??PLATELET?COUNT?(Thou/mm3) 354 343 ? 400 ??NEUTROPHILS?%,?AUTO?(%) 60 66 ? 66 ??LYMPH?%,?AUTO?(%) 26 22 ? 22 ??NEUTROPHILS,?AUTO?(Thou/mm3) 6.3 7.3 ? 7.6 ??GLUCOSE,RANDOM?(mg/dL) ? ? 144?H ? ??BLOOD?UREA?NITROGEN?(mg/dL) ? ? 27?H ? ??CREATININE?(mg/dL) ? ? 1.40?H ? ??SODIUM?(mmol/L) ? ? 140 ? ??POTASSIUM?(mmol/L) ? ? 4.2 ? ??CHLORIDE?(mmol/L) ? ? 98 ? ??CrCl?(CandG)?(ml/min) ? ? 43.89 ? ??AST/SGOT?(Unit/L) ? ? 24 ? ??ALT/SGPT?(Unit/L) ? ? 17 ? ??ALKALINE?PHOSPHATASE?(Unit/L) ? ? 119?H ? ??BILIRUBIN,?TOTAL?(mg/dL) ? ? 0.4 ? ??PROTEIN?TOTAL?(gm/dl) ? ? 7.1 ? ??ALBUMIN,?SERUM?(gm/dl) ? ? 4.9 ? ??GLOBULIN?(gm/dl) ? ? 2.2?L ? ??ALBUMIN/GLOBULIN?RATIO ? ? 2.2 ? ??CALCIUM,?SERUM?(mg/dL) ? ? 10.3 ? ??CALCIUM?SERUM?(CORRECTED)?(mg/dL) ? ? 10.3?H ? Vital Signs - Blood Pressure: 100/70 mmHg Physical Examination Respiratory: Wheezing observed during conversation. Laboratory, Imaging, and Diagnostic Test Results - Date: November 2024 - CT scan: Negative - Date: January 02, 2025 - Bone marrow biopsy: Negative for cancer - CT scan: Negative - Recent results (date not specified): - WBC: Slightly elevated - Hemoglobin: 17 g/dL (high) - Kidney function: GFR 43.5 mL/min/1.73m? (decreased by 25%) ASSESSMENT/PLAN:?Demond Singh Assessment/Plan? 1. History of leukocytosis and neutrophilia most likely secondary to cigarette smoking. Ms. Pérez is a chronic cigarette smoker. She continues to smoke half a pack a day at this time. Extensively counseled to quit smoking Patient is not ready Continue to monitor Levi Perdomo, a 59-year-old woman with extensive smoking history, seen for follow-up of bone marrow biopsy and CT scan results, presenting with respiratory symptoms and decreased kidney function. Respiratory symptoms (COPD and allergies) Assessment: Patient presents with wheezing and shortness of breath, likely due to a combination of COPD and current allergy symptoms. Patient has an extensive smoking history and continues to smoke half a pack per day. Recent CT scan was negative for pneumonia or other acute processes. Pulmonary function tests and sleep study results are pending. Patient reports feeling satisfied when placed in an oxygen chamber during a recent pulmonology visit, suggesting potential benefit from oxygen therapy. Plan: - Await results of pulmonary function tests and sleep study - Consider oxygen therapy based on pending test results - Encourage smoking cessation - Follow up in 4 weeks to review test results Decreased kidney function Assessment: Patient's kidney function has decreased by 25%, with current eGFR at 43.5 mL/min/1.73m?. Patient reports frequent urination without dark coloration. Current medications include hydrochlorothiazide and lisinopril for hypertension. Hydrochlorothiazide is suspected to be contributing to the decline in kidney function. Plan: - Discontinue hydrochlorothiazide - Change medication regimen to lisinopril 10 mg PO daily - Monitor kidney function and blood pressure Polycythemia Assessment: Patient's hemoglobin remains elevated at 17 g/dL. Previous bone marrow biopsy was negative for cancer. White blood cell count is slightly elevated. Plan: - Continue monitoring hemoglobin levels - Follow up on erythropoietin level results - Reassess in 4 weeks Hypertension Assessment: Patient reports current blood pressure readings of approximately 100/70 mmHg on combination therapy of hydrochlorothiazide and lisinopril. Plan: - Discontinue hydrochlorothiazide - Continue lisinopril 10 mg PO daily - Monitor blood pressure for adequate control on monotherapy Diabetes mellitus Assessment: Patient confirms history of diabetes. No specific details or current management discussed. Plan: - Continue current diabetes management (details not specified) - Monitor kidney function in context of diabetic nephropathy risk #2 erythrocytosis likely from chronic hypoxia secondary to underlying smoking Patient need PFTs to evaluate for COPD Needs sleep studies to evaluate for CHARLEY and nocturnal hypoxia Will continue phlebotomy to keep hematocrit below 45 Bone marrow negative for any MDS MPN JAK2 negative MPL mutation negative NATO mutation negative Patient's erythrocytosis is likely from secondary causes Will also check EPO CT scan chest abdomen pelvis negative for any malignancy Obesity with a BMI 33.3, 176 L8. May also be contributing to hypoxia #3 osteopenia Advised to take calcium and vitamin D3 daily If patient's PFT shows that she has restrictive or obstructive disease will refer to pulmonary If patient have CPAP requirement will need follow-up with the pulmonary Will continue phlebotomy and follow her every 6 months RETURN TO CLINIC: BILLING AND COMPLIANCE: I reviewed external records from providers outside my specialty as summarized above. I spent a total of 50 minutes on this patient?s care on the day of their visit excluding time spent related to any billed procedures. This time includes time spent with the patient as well as time spent documenting in the medical record, reviewing patients records and tests, obtaining history, placing orders, communicating with other healthcare professionals, counseling the patient, family or caregiver, and/or care coordination for the diagnoses above. Electronically Signed by: Gregor Singh MD T: 1:22 AM CC: PCP: Keshav Ruiz Referring: Keshav Ruiz This document was completed utilizing speech recognition software. Grammatical errors, random word insertions, pronoun errors, and incomplete sentences are an occasional consequence of this system due to software limitations, ambient noise, and hardware issues. Any formal questions or concerns about the content, text or information contained within the body of this dictation should be directly addressed to the provider for clarification.
[2025-03-31 06:49] LABS: Erythropoietin (EPO)* 72.7 mIU/mL (2.6-18.5); Testosterone,Total* 25 ng/dL (2-45)
== END 2025-03-29 23:59 | disposition home or self-care (01) ==
LOC: SCTC 14:09
PROVIDERS: Internal Medicine Hematology & Oncology; PCP Physician Assistant; Referring Provider Physician Assistant; Visit Provider Nurse Practitioner Family
DX: D72.829 Elevated white blood cell count, unspecified (principal); D75.1 Secondary polycythemia; F17.210 Nicotine dependence, cigarettes, uncomplicated; Z71.6 Tobacco abuse counseling; M85.80 Other specified disorders of bone density and structure, unspecified site; J44.9 Chronic obstructive pulmonary disease, unspecified; E11.22 Type 2 diabetes mellitus with diabetic chronic kidney disease; I12.9 Hypertensive chronic kidney disease with stage 1 through stage 4 chronic kidney disease, or unspecified chronic kidney disease; N18.9 Chronic kidney disease, unspecified; Z79.84 Long term (current) use of oral hypoglycemic drugs; Z71.2 Person consulting for explanation of examination or test findings
CPT/HCPCS: 36415; 80053; 82668; 84403; 85025; 96360; 99212; J7030; G0463

== ENCOUNTER → 2025-04-13 | Outpatient (CLI) | payer MEDICAID, SELFPAY ==
--- NOTE | 2025-04-13 09:00 | XR_ITS ---
Examination: CT chest, without intravenous contrast. Sagittal and coronal 2-D reconstructions. Exam date and time: 07/14/2025 0829 hours Comparison December 19, 2024 INDICATIONS: Nicotine dependence, smoking history 43 years CTDI:vol (mGy) 16 DLP: (mGycm) 618 Technique: Multiple 3.0 mm axial sections of the chest to been obtained. Bone and lung density settings are obtained. Sagittal and coronal 2-D reconstructions have been obtained. Low dose protocols were performed. One or more of the following dose reduction techniques were used; automated exposure control, adjustment of the mA and/or KV according to patient size, use of iterative reconstruction technique. Findings: Multiple poorly defined right thyroid nodules No thoracic aortic aneurysm dilatation Pulmonary artery segments are not enlarged No paratracheal tracheobronchial or bronchopulmonary adenopathy No pneumonia, pulmonary edema, pleural disease or pulmonary nodules 37 mm right hepatic cyst Contracted gallbladder Bilateral 1 to 2 mm renal calculi IMPRESSION: No mediastinal lymphadenopathy No pneumonia or pulmonary edema or disease or pulmonary nodules
== END | disposition home or self-care (01) ==
LOC: CCTX 08:32
PROVIDERS: PCP Physician Assistant; Referring Provider Physician Assistant; Visit Provider Physician Assistant
DX: F17.200 Nicotine dependence, unspecified, uncomplicated (principal)
CPT/HCPCS: 71271

== ENCOUNTER 2025-04-20 14:09 | Outpatient (RCR) | payer MEDICAID, SELFPAY ==
[2025-03-30 15:06] LABS: Basophils # (Auto) 0.1 Thou/mm3 (0.0-0.2); Basophils % (Auto) 1 % (0-2.5); Eosinophils # (Auto) 0.4 Thou/mm3 (0.0-0.5); Eosinophils % (Auto) 4 % (0-10); Hematocrit 42.2 % (36.0-46.0); Hemoglobin 13.3 g/dL (12.0-16.0); Immature Granulocytes % (Auto) 1 % (0-0); Immature Granulocytes Auto 0.05 Thou/mm3 (0.00-0.00); Lymphocytes # (Auto) 2.4 Thou/mm3 (1.0-4.8); Lymphocytes % (Auto) 23 % (10-50); Mean Corpuscular HGB Conc 31.5 g/dl (31.0-37.0); Mean Corpuscular Hemoglobin 27.8 pg (25.0-35.0); Mean Corpuscular Volume 88 fL (80-100); Monocytes # (Auto) 0.7 Thou/mm3 (0.0-0.8); Monocytes % (Auto) 7 % (0-12); Neutrophils # (Auto) 6.6 Thou/mm3 (1.8-7.7); Neutrophils % (Auto) 65 % (37-80); Nucleated Red Blood Cell % 0 /100 WBC (0); Platelet Count 374 Thou/mm3 (140-440); Red Blood Count 4.79 Miln/mm3 (4.00-5.20); White Blood Count 10.2 Thou/mm3 (3.6-11.0)
[2025-04-20 15:11] LABS: Basophils # (Auto) 0.1 Thou/mm3 (0.0-0.2); Basophils % (Auto) 1 % (0-2.5); Eosinophils # (Auto) 0.4 Thou/mm3 (0.0-0.5); Eosinophils % (Auto) 3 % (0-10); Hematocrit 42.4 % (36.0-46.0); Hemoglobin 13.6 g/dL (12.0-16.0); Immature Granulocytes % (Auto) 0 % (0-0); Immature Granulocytes Auto 0.04 Thou/mm3 (0.00-0.00); Lymphocytes # (Auto) 2.6 Thou/mm3 (1.0-4.8); Lymphocytes % (Auto) 25 % (10-50); Mean Corpuscular HGB Conc 32.1 g/dl (31.0-37.0); Mean Corpuscular Hemoglobin 27.4 pg (25.0-35.0); Mean Corpuscular Volume 86 fL (80-100); Monocytes % (Auto) 9 % (0-12); Neutrophils # (Auto) 6.4 Thou/mm3 (1.8-7.7); Neutrophils % (Auto) 62 % (37-80); Nucleated Red Blood Cell % 0 /100 WBC (0); Platelet Count 334 Thou/mm3 (140-440); RDW Standard Deviation 44.2 fL (36.4-46.3); Red Blood Count 4.96 Miln/mm3 (4.00-5.20); White Blood Count 10.3 Thou/mm3 (3.6-11.0)
--- NOTE | 2025-04-25 10:09 | CTCFLWUP_ITS ---
Patient: ORLANDO PÉREZ : 1965 Page 4 of 6 FOLLOW UP NOTE DATE OF SERVICE: 04/18/2025 NAME: ORLANDO PÉREZ ACCOUNT: [id number] : 1965 AGE: 59 INTERVAL HISTORY: Levi Perdomo, a 59-year-old woman with a history of extensive smoking, COPD, hypertension, diabetes, and chronic kidney disease, presented for follow-up of recent bone marrow biopsy and CT scan results. She reports wheezing and frequent urination, with her blood pressure running around 100/70 mmHg. Recent tests showed a negative bone marrow biopsy and CT scan, elevated hemoglobin, slightly elevated WBC, and decreased kidney function. Plans include discontinuing hydrochlorothiazide, monitoring kidney function and blood pressure, considering oxygen therapy, and encouraging smoking cessation. Chief Complaint History of Present Illness Levi Freeman, a 59-year-old woman with a history of extensive smoking HISTORY: Ms. Pérez has been smoking cigarettes since age 16. She used to smoke 1 pack/day which she has cut down to 10 to 15 cigarettes few months ago. At present she continues to smoke cigarettes. The patient continues to smoke half a pack of cigarettes per day. She reports currently experiencing an allergy attack, which is contributing to her respiratory symptoms along with her COPD. The patient mentions frequent urination, though she notes the urine is not dark in color. Her blood pressure has been running around 100/70, and she is currently taking hydrochlorothiazide and lisinopril for hypertension. She also confirms a history of diabetes. Regarding her recent sleep study, the patient admits she likely did not wear the monitoring device for the entire night, possibly removing it in the middle of the night. The sleep center has requested she come to their facility for a more controlled study. The patient previously saw a instrument operator, Dr. Gen Kaufman, who had her use oxygen in a chamber for an hour. She reports feeling satisfied with this experience. Medical History - Chronic obstructive pulmonary disease (COPD) - Hypertension, controlled with medication - Diabetes mellitus - Chronic kidney disease, with recent decline in function Medications and Supplements - Hydrochlorothiazide - Being discontinued due to potential kidney function impact - Lisinopril - Taken in combination with hydrochlorothiazide - Lisinopril 10 mg tablet by mouth once daily - New regimen replacing the combination of lisinopril and hydrochlorothiazide Allergies - Patient reports having an allergy attack at the time of the visit Social History - Substance Use: Current smoker (half a pack per day) Review of Systems General: Positive for frequent urination. Respiratory: Positive for wheezing. Cardiovascular: Negative for high blood pressure. Genitourinary: Negative for dark-colored urine.06/11/2023: CT scan of the chest without IV contrast 08/31/2023: WBC 10.4, ANC 6.9, hemoglobin 16.5, MCV 92, platelets 257,000. 04/01/2024: WBC 10.4, ANC 6.1, hemoglobin 15.7, MCV 94, platelets 282,000 10/18/2024: WBC 12.6, ANC 8.2, hemoglobin 17.7, MCV 92, platelets 309,000 11/09/2024: WBC 12.9, ANC 8.2, hemoglobin 17.2, hematocrit 51.0, MCV 91, platelets 289,000 ONCOLOGY HISTORY: DIAGNOSIS: Mild asymptomatic leukocytosis and neutrophilia most likely secondary to cigarette smoking. Cigarette smoking for more than 40 years. Obesity with a BMI of 33.3 and a weight of 176 pounds. 12/27/2024 CT scan chest abdomen pelvis shows no mediastinal lymphadenopathy no pneumonia pulmonary edema pleural disease pulmonary mass disease no abdominal or pelvic lymphadenopathy Patient noted to have heavy abdominal aortic calcifications and moderate osteopenia: Care?Plan Start?Date Cycle Day Intent DATE OF DIAGNOSIS: STAGE/TNM: TREATMENT HISTORY: Care?Plan Start?Date Cycle Day Intent HISTORY OF PRESENT ILLNESS: OTHER MEDICAL HISTORY/CONDITIONS: DIABETES SESONAL ALLERGIES HIGH BLOOD PRESSUE SEIZURES HX C SECTION/ 3 RIGHT KNEE MINUSI REPAIR CLAVICAL DISECTION CARPAL TUNNEL. BILAT TUBAL CHRONIC BACK PAIN DVT 2001 AFTER KNEE SURGERY COPD FAMILY HISTORY: Patient?denies?family?cancer?history. 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 Adult Low Dose Aspirin - 81 mg 1 tab one tab po q daily 2. atorvastatin - 40 mg 1 tab Daily 3. BuSpar - 30 mg 1 tab Twice a Day 4. gabapentin - 600 mg 1 tab Twice a Day 5. Januvia - 100 mg 1 tab Daily 6. Jardiance - 10 mg 1 tab Daily 7. metFORMIN - 1,000 mg 1 tab Twice a Day 8. methocarbamol - 750 mg 1 tab Twice a Day?Palabra Meds? Medications Last Reconciled by Malgorzata Guzman MA on 04/18/2025 ALLERGIES: CODEINE PHOSPHATE; nicotine REVIEW OF SYSTEMS: A complete 14-point review of systems was performed and is negative except as noted in interval history. PHYSICAL EXAMINATION:?CloneBlock PE? VITAL SIGNS: Temperature?98.2, B/P?122/78, Oxygen?Saturation?96% PAIN: 0 - No pain ECOG Performance Status: 1 - Symptomatic; ambulatory; restricted in strenuous activity GENERAL APPEARANCE: Appears well, in no apparent distress, appropriately interactive. HEENT: Normocephalic, no temporal wasting, normal conjunctiva, normal hearing, lips without lesions, neck normal range of motion. CARDIOVASCULAR: Normal heart sounds PULMONARY: Coarse lung sounds, wheezing , speaking in full sentences, no tachypnea. EXTREMITIES: No pedal edema or cyanosis. Using walker for ambulation SKIN: Normal skin appearance. NEUROLOGIC: Alert and ORIENTED x4. PSHYCHIATRIC: Appropriate affect, mood normal, behavior normal, intact thought and speech. LABORATORY DATA: I have personally reviewed and interpreted each of the patient?s relevant lab tests, abnormal findings are below: Date 03/23/25 03/30/25 04/20/25 ??WHITE?BLOOD?COUNT?(Thou/mm3) ? 11.5?H 10.2 10.3 ??RED?BLOOD?COUNT?(Miln/mm3) ? 4.82 4.79 4.96 ??HEMOGLOBIN?(gm/dl) ? 13.8 13.3 13.6 ??HEMATOCRIT?(%) ? 42.7 42.2 42.4 ??PLATELET?COUNT?(Thou/mm3) ? 400 374 334 ??NEUTROPHILS?%,?AUTO?(%) ? 66 65 62 ??LYMPH?%,?AUTO?(%) ? 22 23 25 ??NEUTROPHILS,?AUTO?(Thou/mm3) ? 7.6 6.6 6.4 ??GLUCOSE,RANDOM?(mg/dL) 144?H ?BLOOD?UREA?NITROGEN?(mg/dL) 27?H ?CREATININE?(mg/dL) 1.40?H ?SODIUM?(mmol/L) 140 ?POTASSIUM?(mmol/L) 4.2 ?CHLORIDE?(mmol/L) 98 ?CrCl?(CandG)?(ml/min) 43.89 ?AST/SGOT?(Unit/L) 24 ?ALT/SGPT?(Unit/L) 17 ?ALKALINE?PHOSPHATASE?(Unit/L) 119?H ?BILIRUBIN,?TOTAL?(mg/dL) 0.4 ?PROTEIN?TOTAL?(gm/dl) 7.1 ?ALBUMIN,?SERUM?(gm/dl) 4.9 ?GLOBULIN?(gm/dl) 2.2?L ?ALBUMIN/GLOBULIN?RATIO 2.2 ?CALCIUM,?SERUM?(mg/dL) 10.3 ?CALCIUM?SERUM?(CORRECTED)?(mg/dL) 10.3?H ? ? ? ASSESSMENT/PLAN:?Demond Singh Assessment/Plan? 1. History of leukocytosis and neutrophilia most likely secondary to cigarette smoking. Ms. Pérez is a chronic cigarette smoker. She continues to smoke half a pack a day at this time. Extensively counseled to quit smoking Patient is not ready Continue to monitor Levi Perdomo, a 59-year-old woman with extensive smoking history, seen for follow-up of bone marrow biopsy and CT scan results, presenting with respiratory symptoms and decreased kidney function. Respiratory symptoms (COPD and allergies) Assessment: Patient presents with wheezing and shortness of breath, likely due to a combination of COPD and current allergy symptoms. Patient has an extensive smoking history and continues to smoke half a pack per day. Recent CT scan was negative for pneumonia or other acute processes. Pulmonary function tests and sleep study results are pending. Patient reports feeling satisfied when placed in an oxygen chamber during a recent pulmonology visit, suggesting potential benefit from oxygen therapy. Plan: - Await results of pulmonary function tests and sleep study need repeat which patient not willing at this time - Consider oxygen therapy based on pending test results-nfollow up with pulmonary - Encourage smoking cessation - Follow up in 4 weeks to review test results Decreased kidney function Assessment: Patient's kidney function has decreased by 25%, with current eGFR at 43.5 mL/min/1.73m?. Patient reports frequent urination without dark coloration. Current medications include hydrochlorothiazide and lisinopril for hypertension. Hydrochlorothiazide is suspected to be contributing to the decline in kidney function. Plan: - Discontinue hydrochlorothiazide - Change medication regimen to lisinopril 10 mg PO daily - Monitor kidney function and blood pressure Polycythemia Assessment: Patient's hemoglobin remains elevated at 17 g/dL. Previous bone marrow biopsy was negative for cancer. White blood cell count is slightly elevated. Plan: - Continue monitoring hemoglobin levels - Follow up on erythropoietin level results - Reassess in 4 weeks Hypertension Assessment: Patient reports current blood pressure readings of approximately 100/70 mmHg on combination therapy of hydrochlorothiazide and lisinopril. Plan: - Discontinue hydrochlorothiazide - Continue lisinopril 10 mg PO daily - Monitor blood pressure for adequate control on monotherapy Diabetes mellitus Assessment: Patient confirms history of diabetes. No specific details or current management discussed. Plan: - Continue current diabetes management (details not specified) - Monitor kidney function in context of diabetic nephropathy risk #2 erythrocytosis likely from chronic hypoxia secondary to underlying smoking Patient need PFTs to evaluate for COPD Needs sleep studies to evaluate for CHARLEY and nocturnal hypoxia Will continue phlebotomy to keep hematocrit below 45 Bone marrow negative for any MDS MPN JAK2 negative MPL mutation negative NATO mutation negative Patient's erythrocytosis is likely from secondary causes Will also check EPO CT scan chest abdomen pelvis negative for any malignancy Obesity with a BMI 33.3, 176 L8. May also be contributing to hypoxia #3 osteopenia Advised to take calcium and vitamin D3 daily Will continue phlebotomy to keep hct below 45 and follow her every 6 months RETURN TO CLINIC: BILLING AND COMPLIANCE: I reviewed external records from providers outside my specialty as summarized above. I spent a total of 50 minutes on this patient?s care on the day of their visit excluding time spent related to any billed procedures. This time includes time spent with the patient as well as time spent documenting in the medical record, reviewing patients records and tests, obtaining history, placing orders, communicating with other healthcare professionals, counseling the patient, family or caregiver, and/or care coordination for the diagnoses above. Electronically Signed by: Gregor Singh MD T: 10:06 AM CC: PCP: Keshav Ruiz Referring: Keshav Ruiz This document was completed utilizing speech recognition software. Grammatical errors, random word insertions, pronoun errors, and incomplete sentences are an occasional consequence of this system due to software limitations, ambient noise, and hardware issues. Any formal questions or concerns about the content, text or information contained within the body of this dictation should be directly addressed to the provider for clarification.
== END 2025-04-29 23:59 | disposition home or self-care (01) ==
LOC: SCTC 14:09
PROVIDERS: PCP Physician Assistant; Referring Provider Physician Assistant; Visit Provider Internal Medicine Hematology & Oncology
DX: D72.829 Elevated white blood cell count, unspecified (principal); Z71.2 Person consulting for explanation of examination or test findings; I12.9 Hypertensive chronic kidney disease with stage 1 through stage 4 chronic kidney disease, or unspecified chronic kidney disease; E11.22 Type 2 diabetes mellitus with diabetic chronic kidney disease; N18.9 Chronic kidney disease, unspecified; J44.9 Chronic obstructive pulmonary disease, unspecified; F17.210 Nicotine dependence, cigarettes, uncomplicated; Z71.6 Tobacco abuse counseling; D75.1 Secondary polycythemia; M85.80 Other specified disorders of bone density and structure, unspecified site
CPT/HCPCS: 36415; 36591; 85025; 99212; G0463

== ENCOUNTER 2025-05-18 13:59 | Outpatient (RCR) | payer MEDICAID, SELFPAY ==
[2025-05-04 15:01] LABS: Basophils # (Auto) 0.1 Thou/mm3 (0.0-0.2); Basophils % (Auto) 0 % (0-2.5); Eosinophils # (Auto) 0.4 Thou/mm3 (0.0-0.5); Eosinophils % (Auto) 4 % (0-10); Hematocrit 43.7 % (36.0-46.0); Immature Granulocytes % (Auto) 0 % (0-0); Immature Granulocytes Auto 0.03 Thou/mm3 (0.00-0.00); Lymphocytes # (Auto) 2.6 Thou/mm3 (1.0-4.8); Lymphocytes % (Auto) 23 % (10-50); Mean Corpuscular Hemoglobin 26.4 pg (25.0-35.0); Mean Corpuscular Volume 83 fL (80-100); Monocytes % (Auto) 9 % (0-12); Neutrophils # (Auto) 7.1 Thou/mm3 (1.8-7.7); Neutrophils % (Auto) 64 % (37-80); Nucleated Red Blood Cell % 0 /100 WBC (0); Platelet Count 346 Thou/mm3 (140-440); RDW Standard Deviation 44.2 fL (36.4-46.3); White Blood Count 11.2 Thou/mm3 (3.6-11.0)
[2025-05-18 14:25] LABS: Basophils # (Auto) 0.1 Thou/mm3 (0.0-0.2); Basophils % (Auto) 1 % (0-2.5); Eosinophils # (Auto) 0.4 Thou/mm3 (0.0-0.5); Eosinophils % (Auto) 4 % (0-10); Hematocrit 45.5 % (36.0-46.0); Hemoglobin 14.4 g/dL (12.0-16.0); Immature Granulocytes % (Auto) 0 % (0-0); Immature Granulocytes Auto 0.04 Thou/mm3 (0.00-0.00); Lymphocytes # (Auto) 2.6 Thou/mm3 (1.0-4.8); Lymphocytes % (Auto) 24 % (10-50); Mean Corpuscular HGB Conc 31.6 g/dl (31.0-37.0); Mean Corpuscular Hemoglobin 25.8 pg (25.0-35.0); Mean Corpuscular Volume 81 fL (80-100); Monocytes % (Auto) 9 % (0-12); Neutrophils # (Auto) 6.6 Thou/mm3 (1.8-7.7); Neutrophils % (Auto) 62 % (37-80); Nucleated Red Blood Cell % 0 /100 WBC (0); Platelet Count 361 Thou/mm3 (140-440); RDW Standard Deviation 44.5 fL (36.4-46.3); Red Blood Count 5.59 Miln/mm3 (4.00-5.20); White Blood Count 10.6 Thou/mm3 (3.6-11.0)
== END 2025-05-29 23:59 | disposition home or self-care (01) ==
LOC: SCTC 13:59
PROVIDERS: PCP Physician Assistant; Referring Provider Physician Assistant; Visit Provider Internal Medicine Hematology & Oncology
DX: D72.829 Elevated white blood cell count, unspecified (principal); F17.210 Nicotine dependence, cigarettes, uncomplicated; Z71.6 Tobacco abuse counseling; J44.9 Chronic obstructive pulmonary disease, unspecified; D75.1 Secondary polycythemia; E11.22 Type 2 diabetes mellitus with diabetic chronic kidney disease; I12.9 Hypertensive chronic kidney disease with stage 1 through stage 4 chronic kidney disease, or unspecified chronic kidney disease; N18.9 Chronic kidney disease, unspecified
CPT/HCPCS: 36415; 36591; 85025

== ENCOUNTER 2025-06-29 12:47 | Outpatient (RCR) | payer MEDICAID, SELFPAY ==
[2025-06-01 13:22] LABS: Basophils # (Auto) 0.1 Thou/mm3 (0.0-0.2); Basophils % (Auto) 0 % (0-2.5); Eosinophils # (Auto) 0.4 Thou/mm3 (0.0-0.5); Eosinophils % (Auto) 3 % (0-10); Hematocrit 44.9 % (36.0-46.0); Hemoglobin 14.1 g/dL (12.0-16.0); Immature Granulocytes Auto 0.05 Thou/mm3 (0.00-0.00); Lymphocytes # (Auto) 2.5 Thou/mm3 (1.0-4.8); Lymphocytes % (Auto) 22 % (10-50); Mean Corpuscular HGB Conc 31.4 g/dl (31.0-37.0); Mean Corpuscular Hemoglobin 25.5 pg (25.0-35.0); Mean Corpuscular Volume 81 fL (80-100); Monocytes # (Auto) 1.0 Thou/mm3 (0.0-0.8); Monocytes % (Auto) 8 % (0-12); Neutrophils # (Auto) 7.7 Thou/mm3 (1.8-7.7); Neutrophils % (Auto) 66 % (37-80); Nucleated Red Blood Cell # 0.00 Thou/mm3 (0.00-0.00); Nucleated Red Blood Cell % 0 /100 WBC (0); Platelet Count 366 Thou/mm3 (140-440); RDW Standard Deviation 47.4 fL (36.4-46.3); Red Blood Count 5.53 Miln/mm3 (4.00-5.20); White Blood Count 11.7 Thou/mm3 (3.6-11.0)
[2025-06-15 13:28] LABS: Basophils # (Auto) 0.1 Thou/mm3 (0.0-0.2); Basophils % (Auto) 1 % (0-2.5); Eosinophils # (Auto) 0.4 Thou/mm3 (0.0-0.5); Eosinophils % (Auto) 4 % (0-10); Hematocrit 45.4 % (36.0-46.0); Hemoglobin 14.4 g/dL (12.0-16.0); Immature Granulocytes Auto 0.04 Thou/mm3 (0.00-0.00); Lymphocytes # (Auto) 2.6 Thou/mm3 (1.0-4.8); Lymphocytes % (Auto) 23 % (10-50); Mean Corpuscular HGB Conc 31.7 g/dl (31.0-37.0); Mean Corpuscular Hemoglobin 25.4 pg (25.0-35.0); Mean Corpuscular Volume 80 fL (80-100); Monocytes # (Auto) 1.0 Thou/mm3 (0.0-0.8); Monocytes % (Auto) 9 % (0-12); Neutrophils # (Auto) 7.4 Thou/mm3 (1.8-7.7); Neutrophils % (Auto) 64 % (37-80); Nucleated Red Blood Cell # 0.00 Thou/mm3 (0.00-0.00); Nucleated Red Blood Cell % 0 /100 WBC (0); Platelet Count 344 Thou/mm3 (140-440); RDW Standard Deviation 48.0 fL (36.4-46.3); Red Blood Count 5.68 Miln/mm3 (4.00-5.20); White Blood Count 11.5 Thou/mm3 (3.6-11.0)
[2025-06-29 13:24] LABS: Basophils # (Auto) 0.1 Thou/mm3 (0.0-0.2); Basophils % (Auto) 1 % (0-2.5); Eosinophils # (Auto) 0.3 Thou/mm3 (0.0-0.5); Eosinophils % (Auto) 3 % (0-10); Hematocrit 48.4 % (36.0-46.0); Hemoglobin 14.7 g/dL (12.0-16.0); Immature Granulocytes Auto 0.03 Thou/mm3 (0.00-0.00); Lymphocytes # (Auto) 2.4 Thou/mm3 (1.0-4.8); Lymphocytes % (Auto) 23 % (10-50); Mean Corpuscular HGB Conc 30.4 g/dl (31.0-37.0); Mean Corpuscular Hemoglobin 25.3 pg (25.0-35.0); Mean Corpuscular Volume 83 fL (80-100); Monocytes # (Auto) 0.7 Thou/mm3 (0.0-0.8); Monocytes % (Auto) 7 % (0-12); Neutrophils # (Auto) 6.8 Thou/mm3 (1.8-7.7); Neutrophils % (Auto) 66 % (37-80); Nucleated Red Blood Cell # 0.00 Thou/mm3 (0.00-0.00); Nucleated Red Blood Cell % 0 /100 WBC (0); Platelet Count 341 Thou/mm3 (140-440); RDW Standard Deviation 52.1 fL (36.4-46.3); Red Blood Count 5.81 Miln/mm3 (4.00-5.20); White Blood Count 10.3 Thou/mm3 (3.6-11.0)
== END 2025-06-29 23:59 | disposition home or self-care (01) ==
LOC: SCTC 12:47
PROVIDERS: PCP Physician Assistant; Referring Provider Physician Assistant; Visit Provider Internal Medicine Hematology & Oncology
DX: D75.1 Secondary polycythemia (principal); D72.829 Elevated white blood cell count, unspecified; F17.210 Nicotine dependence, cigarettes, uncomplicated; Z71.6 Tobacco abuse counseling; J44.9 Chronic obstructive pulmonary disease, unspecified; I10 Essential (primary) hypertension; E11.9 Type 2 diabetes mellitus without complications; M85.80 Other specified disorders of bone density and structure, unspecified site; Z79.84 Long term (current) use of oral hypoglycemic drugs
CPT/HCPCS: 36415; 36430; 85025; 99195; A4216; J7040

== ENCOUNTER 2025-07-19 12:55 | Outpatient (RCR) | payer MEDICAID, SELFPAY ==
[2025-07-13 13:44] LABS: Alanine Aminotransferase 16 U/L (10-49); Albumin, Serum 4.5 gm/dL (3.5-5.0); Albumin/Globulin Ratio 2.0 (1.2-2.2); Alkaline Phosphatase 128 U/L (46-116); Anion Gap 12 (7-16); Aspartate Amino Transferase 33 U/L (0-34); BUN/Creatinine Ratio 7 Ratio (12-20); Bilirubin,Total 0.5 mg/dL (0.3-1.2); Blood Urea Nitrogen 8 mg/dL (9-23); Calcium 10.1 mg/dL (8.3-10.6); Calcium (Corrected) 10.1 mg/dL (8.5-10.1); Carbon Dioxide 24.8 mMol/L (20.0-31.0); Chloride 104 mMol/L (98-107); Creatinine (Component) 1.1 mg/dL (0.6-1.3); Globulin 2.2 gm/dL (2.3-3.5); Glucose 223 mg/dL (74-106); Osmolality,Calculated 286 (275-295); Potassium 4.6 mMol/L (3.4-5.1); Sodium 141 mMol/L (136-145); Total Protein 6.7 gm/dL (5.7-8.2); eGFR 58 See Note
[2025-07-13 14:10] LABS: Basophils # (Auto) 0.1 Thou/mm3 (0.0-0.2); Basophils % (Auto) 1 % (0-2.5); Eosinophils # (Auto) 0.3 Thou/mm3 (0.0-0.5); Eosinophils % (Auto) 3 % (0-10); Hematocrit 43.4 % (36.0-46.0); Hemoglobin 13.0 g/dL (12.0-16.0); Immature Granulocytes Auto 0.04 Thou/mm3 (0.00-0.00); Lymphocytes # (Auto) 2.2 Thou/mm3 (1.0-4.8); Lymphocytes % (Auto) 21 % (10-50); Mean Corpuscular HGB Conc 30.0 g/dl (31.0-37.0); Mean Corpuscular Hemoglobin 24.9 pg (25.0-35.0); Mean Corpuscular Volume 83 fL (80-100); Monocytes # (Auto) 1.1 Thou/mm3 (0.0-0.8); Monocytes % (Auto) 10 % (0-12); Neutrophils # (Auto) 6.7 Thou/mm3 (1.8-7.7); Neutrophils % (Auto) 65 % (37-80); Nucleated Red Blood Cell # 0.00 Thou/mm3 (0.00-0.00); Nucleated Red Blood Cell % 0 /100 WBC (0); Platelet Count 356 Thou/mm3 (140-440); RDW Standard Deviation 52.9 fL (36.4-46.3); Red Blood Count 5.22 Miln/mm3 (4.00-5.20); White Blood Count 10.3 Thou/mm3 (3.6-11.0)
--- NOTE | 2025-07-19 13:36 | CTCFLWUP_ITS ---
Patient: ORLANDO PÉREZ : 1965 Page 4 of 6 FOLLOW UP NOTE DATE OF SERVICE: 07/19/2025 NAME: ORLANDO PÉREZ ACCOUNT: [id number] : 1965 AGE: 59 INTERVAL HISTORY: Levi Perdomo, a 59-year-old woman with a history of extensive smoking, COPD, hypertension, diabetes, and chronic kidney disease with erythyrocytosis . patient is getting phlebotomy. Patient could not get her CPAP machine as she is advised to come to [place]. Patient have hardship going to [place] and she completed at home sleep study which was told to be inconclusive. Chief Complaint History of Present Illness Levi Freeman, a 59-year-old woman with a history of extensive smoking HISTORY: Ms. Pérez has been smoking cigarettes since age 16. She used to smoke 1 pack/day which she has cut down to 10 to 15 cigarettes few months ago. At present she continues to smoke cigarettes. The patient continues to smoke half a pack of cigarettes per day. She reports currently experiencing an allergy attack, which is contributing to her respiratory symptoms along with her COPD. The patient mentions frequent urination, though she notes the urine is not dark in color. Her blood pressure has been running around 100/70, and she is currently taking hydrochlorothiazide and lisinopril for hypertension. She also confirms a history of diabetes. Regarding her recent sleep study, the patient admits she likely did not wear the monitoring device for the entire night, possibly removing it in the middle of the night. The sleep center has requested she come to their facility for a more controlled study. The patient previously saw a clinical product manager, Dr. Gen Kaufman, who had her use oxygen in a chamber for an hour. She reports feeling satisfied with this experience. Medical History - Chronic obstructive pulmonary disease (COPD) - Hypertension, controlled with medication - Diabetes mellitus - Chronic kidney disease, with recent decline in function Medications and Supplements - Hydrochlorothiazide - Being discontinued due to potential kidney function impact - Lisinopril - Taken in combination with hydrochlorothiazide - Lisinopril 10 mg tablet by mouth once daily - New regimen replacing the combination of lisinopril and hydrochlorothiazide Allergies - Patient reports having an allergy attack at the time of the visit Social History - Substance Use: Current smoker (half a pack per day) Review of Systems General: Positive for frequent urination. Respiratory: Positive for wheezing. Cardiovascular: Negative for high blood pressure. Genitourinary: Negative for dark-colored urine.06/11/2023: CT scan of the chest without IV contrast 08/31/2023: WBC 10.4, ANC 6.9, hemoglobin 16.5, MCV 92, platelets 257,000. 04/01/2024: WBC 10.4, ANC 6.1, hemoglobin 15.7, MCV 94, platelets 282,000 10/18/2024: WBC 12.6, ANC 8.2, hemoglobin 17.7, MCV 92, platelets 309,000 11/09/2024: WBC 12.9, ANC 8.2, hemoglobin 17.2, hematocrit 51.0, MCV 91, platelets 289,000 ONCOLOGY HISTORY:?[facility] Hx? DIAGNOSIS: Mild asymptomatic leukocytosis and neutrophilia most likely secondary to cigarette smoking. Cigarette smoking for more than 40 years. Obesity with a BMI of 33.3 and a weight of 176 pounds. 12/27/2024 CT scan chest abdomen pelvis shows no mediastinal lymphadenopathy no pneumonia pulmonary edema pleural disease pulmonary mass disease no abdominal or pelvic lymphadenopathy Patient noted to have heavy abdominal aortic calcifications and moderate osteopenia: Care?Plan Start?Date Cycle Day Intent DATE OF DIAGNOSIS: STAGE/TNM: TREATMENT HISTORY: Care?Plan Start?Date Cycle Day Intent HISTORY OF PRESENT ILLNESS: OTHER MEDICAL HISTORY/CONDITIONS: DIABETES SESONAL ALLERGIES HIGH BLOOD PRESSUE SEIZURES HX C SECTION/ 3 RIGHT KNEE MINUSI REPAIR CLAVICAL DISECTION CARPAL TUNNEL. BILAT TUBAL CHRONIC BACK PAIN DVT 2001 AFTER KNEE SURGERY COPD FAMILY HISTORY: Patient?denies?family?cancer?history. 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 Adult Low Dose Aspirin - 81 mg 1 tab one tab po q daily 2. atorvastatin - 40 mg 1 tab Daily 3. BuSpar - 30 mg 1 tab Twice a Day 4. gabapentin - 600 mg 1 tab Twice a Day 5. Januvia - 100 mg 1 tab Daily 6. Jardiance - 10 mg 1 tab Daily 7. metFORMIN - 1,000 mg 1 tab Twice a Day 8. methocarbamol - 750 mg 1 tab Twice a Day?Palabra Meds? Medications Last Reconciled by Malgorzata Guzman MA on 04/18/2025 ALLERGIES: CODEINE PHOSPHATE; nicotine REVIEW OF SYSTEMS: A complete 14-point review of systems was performed and is negative except as noted in interval history. PHYSICAL EXAMINATION:?CloneBlock PE? VITAL SIGNS: PAIN: 0 - No pain ECOG Performance Status: 2 - Symptomatic; ambulatory; capable of self-care; >50% of waking hrs. not in bed GENERAL APPEARANCE: Appears well, in no apparent distress, appropriately interactive. HEENT: Normocephalic, no temporal wasting, normal conjunctiva, normal hearing, lips without lesions, neck normal range of motion. CARDIOVASCULAR: Normal heart sounds PULMONARY: Coarse lung sounds, wheezing , speaking in full sentences, no tachypnea. EXTREMITIES: No pedal edema or cyanosis. Using walker for ambulation SKIN: Normal skin appearance. NEUROLOGIC: Alert and ORIENTED x4. PSHYCHIATRIC: Appropriate affect, mood normal, behavior normal, intact thought and speech. LABORATORY DATA: I have personally reviewed and interpreted each of the patient?s relevant lab tests, abnormal findings are below: Date 06/15/25 06/29/25 07/13/25 ??WHITE?BLOOD?COUNT?(Thou/mm3) 11.5?H 10.3 ? 10.3 ??RED?BLOOD?COUNT?(Miln/mm3) 5.68?H 5.81?H ? 5.22?H ??HEMOGLOBIN?(gm/dl) 14.4 14.7 ? 13.0 ??HEMATOCRIT?(%) 45.4 48.4?H ? 43.4 ??PLATELET?COUNT?(Thou/mm3) 344 341 ? 356 ??NEUTROPHILS?%,?AUTO?(%) 64 66 ? 65 ??LYMPH?%,?AUTO?(%) 23 23 ? 21 ??NEUTROPHILS,?AUTO?(Thou/mm3) 7.4 6.8 ? 6.7 ??GLUCOSE,RANDOM?(mg/dL) ? ? 223?H ? ??BLOOD?UREA?NITROGEN?(mg/dL) ? ? 8?L ? ??CREATININE?(mg/dL) ? ? 1.10 ? ??SODIUM?(mmol/L) ? ? 141 ? ??POTASSIUM?(mmol/L) ? ? 4.6 ? ??CHLORIDE?(mmol/L) ? ? 104 ? ??CrCl?(CandG)?(ml/min) ? ? 55.99 ? ??AST/SGOT?(Unit/L) ? ? 33 ? ??ALT/SGPT?(Unit/L) ? ? 16 ? ??ALKALINE?PHOSPHATASE?(Unit/L) ? ? 128?H ? ??BILIRUBIN,?TOTAL?(mg/dL) ? ? 0.5 ? ??PROTEIN?TOTAL?(gm/dl) ? ? 6.7 ? ??ALBUMIN,?SERUM?(gm/dl) ? ? 4.5 ? ??GLOBULIN?(gm/dl) ? ? 2.2?L ? ??ALBUMIN/GLOBULIN?RATIO ? ? 2.0 ? ??CALCIUM,?SERUM?(mg/dL) ? ? 10.1 ? ??CALCIUM?SERUM?(CORRECTED)?(mg/dL) ? ? 10.1 ? ASSESSMENT/PLAN:?Demond Singh Assessment/Plan? 1. History of leukocytosis and neutrophilia most likely secondary to cigarette smoking. Ms. Pérez is a chronic cigarette smoker. She continues to smoke half a pack a day at this time. Extensively counseled to quit smoking Patient is not ready Continue to monitor Respiratory symptoms (COPD and allergies) Assessment: Patient presents with wheezing and shortness of breath, likely due to a combination of COPD and current allergy symptoms. Patient has an extensive smoking history and continues to smoke half a pack per day. Recent CT scan was negative for pneumonia or other acute processes. Pulmonary function tests and sleep study results are pending. Patient reports feeling satisfied when placed in an oxygen chamber during a recent pulmonology visit, suggesting potential benefit from oxygen therapy. Referred again for pulmonary function test - Consider oxygen therapy based on pending test results-nfollow up with pulmonary - Encourage smoking cessation Decreased kidney function Assessment: Patient's kidney function has decreased by 25%, with current eGFR at 43.5 mL/min/1.73m?. Patient reports frequent urination without dark coloration. Current medications include hydrochlorothiazide and lisinopril for hypertension. Hydrochlorothiazide is suspected to be contributing to the decline in kidney function. Plan: - Discontinue hydrochlorothiazide - Change medication regimen to lisinopril 10 mg PO daily - Monitor kidney function and blood pressure Polycythemia Patient's hemoglobin has improved and hematocrit is below 45 Continue phlebotomy to keep it below 48 Check CBC every 2 months Hypertension On losartan 10 mg Blood pressure 150 x 80 Advised to follow with primary care Diabetes mellitus Assessment: Patient confirms history of diabetes. No specific details or current management discussed. Plan: - Continue current diabetes management (details not specified) - Monitor kidney function in context of diabetic nephropathy risk CT scan chest abdomen pelvis negative for any malignancy Obesity with a BMI 33.3, 176 L8. May also be contributing to hypoxia osteopenia Advised to take calcium and vitamin D3 daily Will continue phlebotomy to keep hct below 45 and follow her every 6 months ORDERS: Order # Description [id number] Comprehensive Metabolic Panel - 12 + CBC with Auto Diff [id number] Comprehensive Metabolic Panel - 12 + CBC with Auto Diff + MD Follow Up 6 Month RETURN TO CLINIC: I reviewed the diagnosis, prognosis, and recommended treatment/procedure options with the patient (and/or their legal charter representative), including the potential benefits, risks, side effects and alternative therapies. We also discussed the option of no treatment and the possibility of clinical trial participation, if applicable. All questions were addressed, and they demonstrated understanding. They provided informed consent to proceed with the proposed plan of care. BILLING AND COMPLIANCE: I reviewed external records from providers outside my specialty as summarized above. I spent a total of 50 minutes on this patient?s care on the day of their visit excluding time spent related to any billed procedures. This time includes time spent with the patient as well as time spent documenting in the medical record, reviewing patients records and tests, obtaining history, placing orders, communicating with other healthcare professionals, counseling the patient, family or caregiver, and/or care coordination for the diagnoses above. Electronically Signed by: Gregor Singh MD T: 1:34 PM CC: PCP: Keshav Ruiz Referring: Keshav Ruiz This document was completed utilizing speech recognition software. Grammatical errors, random word insertions, pronoun errors, and incomplete sentences are an occasional consequence of this system due to software limitations, ambient noise, and hardware issues. Any formal questions or concerns about the content, text or information contained within the body of this dictation should be directly addressed to the provider for clarification.
== END 2025-07-30 23:59 | disposition home or self-care (01) ==
LOC: SCTC 12:55
PROVIDERS: PCP Physician Assistant; Referring Provider Physician Assistant; Visit Provider Internal Medicine Hematology & Oncology
DX: D75.1 Secondary polycythemia (principal); F17.210 Nicotine dependence, cigarettes, uncomplicated; Z86.2 Personal history of diseases of the blood and blood-forming organs and certain disorders involving the immune mechanism; J44.9 Chronic obstructive pulmonary disease, unspecified; I10 Essential (primary) hypertension; E11.9 Type 2 diabetes mellitus without complications; E66.9 Obesity, unspecified; Z68.33 Body mass index [BMI] 33.0-33.9, adult; M85.80 Other specified disorders of bone density and structure, unspecified site; R35.0 Frequency of micturition
CPT/HCPCS: 36415; 80053; 85025; 99212; G0463

== ENCOUNTER 2025-08-31 12:55 | Outpatient (RCR) | payer MEDICAID, SELFPAY ==
[2025-08-31 13:42] LABS: Basophils # (Auto) 0.0 Thou/mm3 (0.0-0.2); Basophils % (Auto) 0 % (0-2.5); Eosinophils # (Auto) 0.4 Thou/mm3 (0.0-0.5); Eosinophils % (Auto) 4 % (0-10); Hematocrit 46.5 % (36.0-46.0); Hemoglobin 14.0 g/dL (12.0-16.0); Immature Granulocytes Auto 0.03 Thou/mm3 (0.00-0.00); Lymphocytes # (Auto) 2.3 Thou/mm3 (1.0-4.8); Lymphocytes % (Auto) 25 % (10-50); Mean Corpuscular HGB Conc 30.1 g/dl (31.0-37.0); Mean Corpuscular Hemoglobin 24.0 pg (25.0-35.0); Mean Corpuscular Volume 80 fL (80-100); Monocytes # (Auto) 0.7 Thou/mm3 (0.0-0.8); Monocytes % (Auto) 8 % (0-12); Neutrophils # (Auto) 5.6 Thou/mm3 (1.8-7.7); Neutrophils % (Auto) 62 % (37-80); Nucleated Red Blood Cell # 0.00 Thou/mm3 (0.00-0.00); Nucleated Red Blood Cell % 0 /100 WBC (0); Platelet Count 350 Thou/mm3 (140-440); RDW Standard Deviation 50.0 fL (36.4-46.3); Red Blood Count 5.83 Miln/mm3 (4.00-5.20); White Blood Count 9.1 Thou/mm3 (3.6-11.0)
== END 2025-09-29 23:59 | disposition home or self-care (01) ==
LOC: SCTC 12:55
PROVIDERS: PCP Physician Assistant; Referring Provider Physician Assistant; Visit Provider Internal Medicine Hematology & Oncology
DX: D75.1 Secondary polycythemia (principal); J44.9 Chronic obstructive pulmonary disease, unspecified; I12.9 Hypertensive chronic kidney disease with stage 1 through stage 4 chronic kidney disease, or unspecified chronic kidney disease; E11.22 Type 2 diabetes mellitus with diabetic chronic kidney disease; N18.9 Chronic kidney disease, unspecified; Z79.84 Long term (current) use of oral hypoglycemic drugs; F17.210 Nicotine dependence, cigarettes, uncomplicated; M85.80 Other specified disorders of bone density and structure, unspecified site
CPT/HCPCS: 36415; 85025